=== PATIENT | female | born 1950 | race Caucasian/White ===

== ENCOUNTER 2016-06-16 13:17 | Outpatient (CLI) | payer MEDICARE | END 2016-06-16 13:18 | disposition home or self-care (01) | DX: M25.511 Pain in right shoulder (principal) ==

== ENCOUNTER 2018-12-09 09:19 | Outpatient (CLI) | payer MEDICARE ==
[2018-12-09 09:56] LABS: BASOPHILS % (AUTO) 0.8 %; EOSINOPHILS # (AUTO) 0.1 10^3/uL (0.0-0.7); EOSINOPHILS % (AUTO) 3.5 %; HGB - HEMOGLOBIN 13.7 g/dL (12.0-16.0); LYMPHOCYTES # (AUTO) 0.9 10^3/uL (1.5-3.5); LYMPHOCYTES % (AUTO) 21.7 %; MEAN CORPUSCULAR HEMOGLOBIN 29.9 pg (27.0-31.0); MEAN CORPUSCULAR HGB CONC 32.3 g/dL (32.0-36.0); MEAN CORPUSCULAR VOLUME 92.6 fL (81.0-99.0); MEAN PLATELET VOLUME 10.8 fL (7.9-10.8); MONOCYTES # (AUTO) 0.3 10^3/uL (0.0-1.0); MONOCYTES % (AUTO) 7.8 %; NEUTROPHILS # (AUTO) 2.6 10^3/uL (1.5-6.6); NEUTROPHILS % (AUTO) 66.2 %; PLT - PLATELET COUNT 200 10^3/uL (130-450); RED BLOOD COUNT 4.58 10^6/uL (4.20-5.40); RED CELL DISTRIBUTION WIDTH 14.2 % (12.0-15.0)
[2018-12-09 10:29] LABS: ALBUMIN/GLOBULIN RATIO 1.3 (1.0-2.2); ALKALINE PHOSPHATASE 77 IU/L (42-121); ALT ALANINE AMINOTRANSFERASE 15 IU/L (10-60); AST ASPARTATE AMINOTRANSFERASE 18 IU/L (10-42); BILIRUBIN,TOTAL 0.9 mg/dL (0.2-1.0); BUN - BLOOD UREA NITROGEN 18 mg/dL (6-20); CALCIUM 9.2 mg/dL (8.5-10.3); CARBON DIOXIDE - CO2 27 mmol/L (21-32); CHLORIDE 106 mmol/L (101-111); CHOL/HDL RATIO 5.3 (<4.4); CHOLESTEROL 232 mg/dL; CREATININE 0.8 mg/dL (0.4-1.0); GFR - MDRD 71 (>89); GLUCOSE 92 mg/dL (70-100); HDL CHOLESTEROL 44 mg/dL; LDL CHOLESTEROL,CALCULATED 168 mg/dL; LDL/HDL RATIO 3.8 (<4.4); SODIUM 141 mmol/L (135-145); TOTAL PROTEIN 7.1 g/dL (6.7-8.2); VLDL CHOLESTEROL 20 mg/dL
== END 2018-12-09 09:20 | disposition home or self-care (01) ==
LOC: LAB 09:19
PROVIDERS: ATTEND Registered Nurse
DX: E78.5 Hyperlipidemia, unspecified (principal); Z13.228 Encounter for screening for other metabolic disorders; M85.50 Aneurysmal bone cyst, unspecified site; E55.9 Vitamin D deficiency, unspecified; Z13.220 Encounter for screening for lipoid disorders; M85.80 Other specified disorders of bone density and structure, unspecified site
CPT/HCPCS: 36415; 80053; 80061; 83036; 83721; 84443; 85025

== ENCOUNTER 2019-01-06 15:15 | Outpatient (CLI) | payer MEDICARE ==
--- NOTE | 2019-01-07 11:08 | Mammography Report ---
Reason: ROUTINE MAMMO Procedure Date: 01/06/2019 Accession Number: [id number] / [id number] Procedure: HORACIO - Screening Mammo w/Anmol CPT Code: Final Report FULL RESULT: EXAM: Screening Mammo w/Anmol DATE: 01/06/2019 4:10 PM CLINICAL HISTORY: Screening encounter. History of nulliparity. Family history of breast cancer in the mother at the age of 75. TECHNIQUE: (B) - Bilateral CC and MLO views were obtained. Right laterally exaggerated CC view is obtained. COMPARISON: 09/10/2015 through 08/28/2010. PARENCHYMAL PATTERN: (A) - The breast(s) demonstrate(s) scattered fibroglandular densities. FINDINGS: There are no suspicious masses, calcifications, or areas of distortion. IMPRESSION: Negative examination. BI-RADS category 1. RECOMMENDATION: (ANNUAL) - Recommend routine annual screening mammography. BI-RADS CATEGORY: (1) - Negative. STANDARD QUALIFYING STATEMENTS: 1. This examination was not reviewed with the aid of Computer-Aided Detection (CAD). 2. A negative or benign imaging report should not preclude biopsy if clinically suspicious findings are present. 3. Dense breasts may obscure an underlying neoplasm. 4. This examination was reviewed with the aid of 3D breast imaging (tomosynthesis).
== END 2019-01-06 15:16 | disposition home or self-care (01) ==
LOC: DI 15:15
PROVIDERS: ATTEND Registered Nurse
DX: Z12.31 Encounter for screening mammogram for malignant neoplasm of breast (principal); Z80.3 Family history of malignant neoplasm of breast
CPT/HCPCS: 77063; 77067

== ENCOUNTER 2019-12-09 10:10 | Outpatient (CLI) | payer MEDICARE | END 2019-12-09 23:59 | disposition home or self-care (01) | LOC: COV 10:10 | PROVIDERS: ATTEND Family Medicine | DX: Z20.828 Contact with and (suspected) exposure to other viral communicable diseases (principal) ==

== ENCOUNTER 2020-05-22 15:10 | Outpatient (CLI) | payer MEDICARE ==
--- NOTE | 2020-05-22 16:26 | XRAY Report ---
PROCEDURE: Chest 2 View X-Ray INDICATIONS: HEMPOTYSIS TECHNIQUE: 2 view(s) of the chest. COMPARISON: None. FINDINGS: Surgical changes and devices: None. Lungs and pleura: No pleural effusions or pneumothorax. Scattered subsegmental scarring/atelectasis . No acute consolidation. Mediastinum: Mediastinal contours are normal. Heart size is normal. Bones and chest wall: No suspicious bony abnormalities. Soft tissues appear unremarkable. IMPRESSION: Scattered subsegmental scarring/atelectasis. No acute consolidation. Reviewed by: Delano Stephens MD on 05/22/2020 4:24 PM PDT Approved by: Delano Stephens MD on 05/22/2020 4:24 PM PDT Station ID: [id number]
== END 2020-05-22 15:11 | disposition home or self-care (01) ==
LOC: DI.S 15:10
PROVIDERS: ATTEND Physician Assistant
DX: R04.2 Hemoptysis (principal); J98.11 Atelectasis

== ENCOUNTER 2020-05-22 16:38 | Emergency (ER) | payer MEDICARE ==
[2020-05-22 17:12] LABS: BASOPHILS % (AUTO) 0.4 %; EOSINOPHILS # (AUTO) 0.1 10^3/uL (0.0-0.7); EOSINOPHILS % (AUTO) 2.4 %; HCT - HEMATOCRIT 44.6 % (37.0-47.0); HGB - HEMOGLOBIN 14.4 g/dL (12.0-16.0); LYMPHOCYTES % (AUTO) 21.4 %; MEAN CORPUSCULAR HEMOGLOBIN 29.9 pg (27.0-31.0); MEAN CORPUSCULAR HGB CONC 32.3 g/dL (32.0-36.0); MEAN CORPUSCULAR VOLUME 92.5 fL (81.0-99.0); MEAN PLATELET VOLUME 11.1 fL (7.9-10.8); MONOCYTES # (AUTO) 0.3 10^3/uL (0.0-1.0); MONOCYTES % (AUTO) 6.8 %; NEUTROPHILS # (AUTO) 3.1 10^3/uL (1.5-6.6); NEUTROPHILS % (AUTO) 68.8 %; PLT - PLATELET COUNT 228 10^3/uL (130-450); RED BLOOD COUNT 4.82 10^6/uL (4.20-5.40); RED CELL DISTRIBUTION WIDTH 14.2 % (12.0-15.0); WHITE BLOOD COUNT 4.5 x10^3/uL (4.8-10.8)
[2020-05-22] MEDS ORDERED: IOVERSOL 320 100 ML VIAL IVP ONE ×2 (17:12→19:16)
--- NOTE | 2020-05-22 17:23 | ED Physician Documentation ---
History of Present Illness - Stated complaint Stated Complaint: COUGHING BLOOD - Chief complaint Chief Complaint: Heent - History obtained from History obtained from: Patient - Additonal information Additional information: 69-year-old woman, previously healthy presents after being sent in by LARISA Wilkinson at the walk-in clinic. Around 4 AM she had 1 episode of bright red blood via cough and then another episode This later in the day prompting her to go to a walk-in clinic. She denies feeling ill, having shortness of breath or sore throat or coughing more than usual other than these 2 episodes. She does endorse some right calf pain and recently drove from [place] 2 weeks ago. No prior history of blood clots. No chest pain, no shortness of breath. History denies sick contacts. She did get her first dose of the [employer] vaccine. Review of Systems Ten Systems: 10 systems reviewed and negative Constitutional: denies: Fever, Chills Respiratory: reports: Cough, Hemoptysis. denies: Dyspnea, Wheezing GI: denies: Abdominal Pain, Nausea PD PAST MEDICAL HISTORY - Present Medications Home Medications: Ambulatory Orders Medication Instructions Recorded Confirmed No Known Home Medications 05/22/20 05/22/20 - Allergies Allergies/Adverse Reactions: Allergies Allergy/AdvReac Type Severity Reaction Status Date / Time codeine Allergy Unknown Verified 05/22/20 16:47 PD ED PE NORMAL - Vitals Vital signs reviewed: Yes - General General: Alert and oriented X 3, No acute distress, Well developed/nourished - HEENT HEENT: Atraumatic, PERRL, EOMI, Moist mucous membranes, Pharynx benign - Neck Neck: Supple, no meningeal sign - Cardiac Cardiac: RRR - Respiratory Respiratory: No respiratory distress, Clear bilaterally - Abdomen Abdomen: Non tender, Non distended - Derm Derm: Normal color, Warm and dry - Extremities Extremities: Other (Right calf discomfort with palpation. Negative Homans' sign. No calf swelling on either side.) - Neuro Neuro: Alert and oriented X 3 - Psych Psych: Normal mood, Normal affect Results - Vitals Vitals: Vital Signs - 24 hr 05/22/20 05/22/20 16:47 17:27 Temperature 36.5 C 36.5 C Heart Rate 63 63 Respiratory 18 18 Rate Blood Pressure 150/80 H 150/80 H O2 Saturation 97 97 Oxygen O2 Source Room air - EKG (time done) 1713 Rate: Rate (enter#) (50) Rhythm: Sinus bradycardia Pollock: Normal Intervals: Normal CO QRS: Normal Ischemia: ST elevation c/w repol - Labs Labs: Laboratory Tests 05/22/20 05/22/20 17:05 17:05 WBC 4.5 L RBC 4.82 Hgb 14.4 Hct 44.6 MCV 92.5 MCH 29.9 MCHC 32.3 RDW 14.2 Plt Count 228 MPV 11.1 H Neut # (Auto) 3.1 Lymph # (Auto) 1.0 L Curry # (Auto) 0.3 Eos # (Auto) 0.1 Baso # (Auto) 0.0 Absolute Nucleated RBC 0.00 Nucleated RBC % 0.0 Sodium 140 Potassium 4.5 Chloride 106 Carbon Dioxide 27 Anion Gap 7.0 BUN 24 H Creatinine 0.9 Estimated GFR (MDRD) 62 L Glucose 93 Calcium 10.1 Total Bilirubin 0.2 AST 23 ALT 20 Alkaline Phosphatase 90 Total Protein 7.4 Albumin 4.3 Globulin 3.1 Albumin/Globulin Ratio 1.4 Lipase 22 PD MEDICAL DECISION MAKING - ED course ED course: 69-year-old woman presents from walk-in clinic for rule out of pulmonary embolism. Her CT angio shows no obvious cause of her hemoptysis. She does not appear to have acute bronchitis, TB risk factors, and is otherwise asymptomatic. Discussed need for follow up MRI for incidental LUQ fatty mass. We will discharge her with strict return precautions and watchful waiting. She should follow-up with her primary doctor this week. Pulmonology referral given. Departure - Departure Disposition: 01 Home, Self Care Clinical Impression: Hemoptysis, Right calf pain Condition: Good Instructions: ED Hemoptysis Comments: You were seen in the emergency department for blood in your cough. Your CT did not show any obvious cause for this. If you continue to have blood in your cough then you may need to see a financial engineer (a lung specialist). Your CT did show a "lipoma" in your left upper abdomen, which is a non-cancerous fatty mass. You should have a follow up MRI of the abdomen with and without IV contrast, according to our radiologist (the doctor who reads your CT). Please follow-up with your primary doctor this week. Return to the emergency department if you develop any new or worsening symptoms or have other concerns. Huyen Valdivia MD [email or web address] Huyen Valdivia MD practices Pulmonary Medicine at [facility]. CT report: EXAM: [id number] CT/CHTANG ([id number]) PROCEDURE: ANGIO CHEST W/WO INDICATIONS: hemoptysis, unequal leg swelling, recent travel CONTRAST: IV CONTRAST: Optiray 320 ml: 80 PO CONTRAST: *NO PO CONTRAST TECHNIQUE: After the administration of intravenous contrast, 2 mm thick sections acquired from the pulmonary apices to the posterior costophrenic angles. 3-dimensional maximum intensity projection (MIP) coron al and sagittal reformats were then acquired through the thorax. For radiation dose reduction, the following was used: automated exposure control, adjustment of mA and/or kV according to patient size. COMPARISON: 2 view chest x-ray 05/22/2020. FINDINGS: Image quality: Excellent. Pulmonary arteries: Pulmonary arteries are normal in size, and demonstrate no intraluminal filling defects to suggest central pulmonary embolism. Lungs and pleura: Lungs are clear acute opacities. Focal areas of fibrosis with associated bronchiectasis noted in the posterior-lateral right upper lobe and the lingula of the left upper lobe. No pleural effusions or pneumothorax. Central and peripheral airways are patent. Mediastinum: Heart size is normal, without pericardial effusion. No mediastinal or hilar adenopathy. Thoracic aorta is normal in caliber and enhancement. Esophagus is normal in caliber, without hiatal hernia. Bones and chest wall: No suspicious bony lesions. Ribs and thoracic spine appear intact throughout. The thyroid is normal. No axillary or supraclavicular adenopathy. Abdomen: Partially visualized large lipomatous lesion noted in the left upper quadrant abdomen producing mild mass effect on loops of bowel, the left kidney and the tail of pancreas. Thin septa noted lipomatous lesion. Visualized upper abdominal solid organs appear normal in the early arterial phase of enhancement. IMPRESSION: 1. No pulmonary embolus. 2. No acute lung opacities or pleural effusions. 3. Partially visualized large lipomatous lesion in the left upper quadrant of th e abdomen increasing local mass effect. Recommend nonemergent MRI of the abdomen with and without contrast for definitive characterization when clinically feasible.
[2020-05-22 17:24] LABS: ALBUMIN 4.3 g/dL (3.2-5.5); ALBUMIN/GLOBULIN RATIO 1.4 (1.0-2.2); BILIRUBIN,TOTAL 0.2 mg/dL (0.2-1.0); CALCIUM 10.1 mg/dL (8.5-10.3); CREATININE 0.9 mg/dL (0.4-1.0); POTASSIUM 4.5 mmol/L (3.5-5.0); TOTAL PROTEIN 7.4 g/dL (6.7-8.2)
[2020-05-22] MEDS ORDERED: SODIUM CHLORIDE 0.9% 1,000 ML IV STA (17:47)
--- NOTE | 2020-05-22 18:36 | CT Report ---
PROCEDURE: ANGIO CHEST W/WO INDICATIONS: hemoptysis, unequal leg swelling, recent travel CONTRAST: IV CONTRAST: Optiray 320 ml: 80 PO CONTRAST: *NO PO CONTRAST TECHNIQUE: After the administration of intravenous contrast, 2 mm thick sections acquired from the pulmonary api josé miguel to the posterior costophrenic angles. 3-dimensional maximum intensity projection (MIP) coronal a nd sagittal reformats were then acquired through the thorax. For radiation dose reduction, the follow ing was used: automated exposure control, adjustment of mA and/or kV according to patient size. COMPARISON: 2 view chest x-ray 05/22/2020. FINDINGS: Image quality: Excellent. Pulmonary arteries: Pulmonary arteries are normal in size, and demonstrate no intraluminal filling d efects to suggest central pulmonary embolism. Lungs and pleura: Lungs are clear acute opacities. Focal areas of fibrosis with associated bronchiect asis noted in the posterior-lateral right upper lobe and the lingula of the left upper lobe. No pleur al effusions or pneumothorax. Central and peripheral airways are patent. Mediastinum: Heart size is normal, without pericardial effusion. No mediastinal or hilar adenopathy . Thoracic aorta is normal in caliber and enhancement. Esophagus is normal in caliber, without hiat al hernia. Bones and chest wall: No suspicious bony lesions. Ribs and thoracic spine appear intact throughout. The thyroid is normal. No axillary or supraclavicular adenopathy. Abdomen: Partially visualized large lipomatous lesion noted in the left upper quadrant abdomen produc ing mild mass effect on loops of bowel, the left kidney and the tail of pancreas. Thin septa noted li pomatous lesion. Visualized upper abdominal solid organs appear normal in the early arterial phase of enhancement. IMPRESSION: 1. No pulmonary embolus. 2. No acute lung opacities or pleural effusions. 3. Partially visualized large lipomatous lesion in the left upper quadrant of the abdomen increasing local mass effect. Recommend nonemergent MRI of the abdomen with and without contrast for definitive characterization when clinically feasible. Reviewed by: Johanny Mendiola MD, PhD on 05/22/2020 6:35 PM PDT Approved by: Johanny Mendiola MD, PhD on 05/22/2020 6:35 PM PDT Station ID: [id number]
[2020-05-22 19:44] VITALS: BP 153/82
[2020-05-22 19:52] LABS: INR 1.1 (0.8-1.2); PT - PROTHROMBIN TIME 12.5 secs (9.9-12.6)
[2020-05-22 19:59] LABS: PARTIAL THROMBOPLASTIN TIME 30.6 secs (24.9-33.3)
== END 2020-05-22 19:58 | disposition home or self-care (01) ==
LOC: ED 16:38
DX: R04.2 Hemoptysis (principal); M79.661 Pain in right lower leg; D17.5 Benign lipomatous neoplasm of intra-abdominal organs; J98.11 Atelectasis
CPT/HCPCS: 36415; 71046; 71275; 80053; 83690; 85025; 85610; 85730; 93005; Q9967; 96360; 99284

== ENCOUNTER 2020-07-05 11:14 | Outpatient (CLI) | payer MEDICARE ==
[2020-07-05 14:53] LABS: HCG,QUALITATIVE BLOOD NEGATIVE
== END 2020-07-05 11:15 | disposition home or self-care (01) ==
LOC: LAB.S 11:14
PROVIDERS: ATTEND Registered Nurse
DX: R19.02 Left upper quadrant abdominal swelling, mass and lump (principal); R04.2 Hemoptysis; R10.13 Epigastric pain
CPT/HCPCS: 36415; 82105; 83615; 84703

== ENCOUNTER 2021-03-19 12:47 | Outpatient (CLI) | payer MEDICARE ==
--- NOTE | 2021-03-20 11:41 | Mammography Report ---
BILATERAL DIGITAL SCREENING MAMMOGRAM 3D/2D WITH EXAGGERATED CC: 03/19/2021 CLINICAL: Routine screening. Family history of breast cancer. Comparison is made to exams dated: 01/06/2019 mammogram, 09/10/2015 mammogram, and 06/08/2013 mammogram - [facility]. There are scattered fibroglandular elements in both breasts. No significant masses, calcifications, or other findings are seen in either breast. There has been no significant interval change. IMPRESSION: NEGATIVE There is no mammographic evidence of malignancy. A 1 year screening mammogram is recommended. This exam was interpreted at Station ID: [id number]. NOTE: For mammograms, a report in lay terms will be sent to the patient. Approximately 15% of breast malignancies will not be visualized mammographically. In the management of a palpable breast mass, a negative mammogram must not discourage biopsy of a clinically suspicious lesion. Electronically Signed By: Reginaldo Ramirez M.D. aty/penrad:03/19/2021 19:04:52 ACR BI-RADS Category 1: Negative 3341F PARENCHYMAL PATTERN: (A) - The breast(s) demonstrate(s) scattered fibroglandular densities. BI-RADS CATEGORY: (1) - 1 RECOMMENDATION: (ANNUAL) - Recommend routine annual screening mammography. [id number] 1 year screening LATERALITY: (B)
== END 2021-03-19 12:48 | disposition home or self-care (01) ==
LOC: DI.S 12:47
PROVIDERS: ATTEND Registered Nurse
DX: Z12.31 Encounter for screening mammogram for malignant neoplasm of breast (principal); Z80.3 Family history of malignant neoplasm of breast

== ENCOUNTER 2022-05-19 13:59 | Outpatient (CLI) | payer MEDICARE ==
--- NOTE | 2022-05-20 12:45 | Mammography Report ---
BILATERAL DIGITAL SCREENING MAMMOGRAM 3D/2D WITH EXAGGERATED CC: 05/19/2022 CLINICAL: Routine screening. Family history of breast cancer. Comparison is made to exams dated: 03/19/2021 mammogram, 01/06/2019 mammogram, and 09/10/2015 mammogram - [facility]. There are scattered areas of fibroglandular density in both breasts (category b / 25%-50% glandular t issue). No significant masses, calcifications, or other findings are seen in either breast. There has been no significant interval change. IMPRESSION: NEGATIVE There is no mammographic evidence of malignancy. A 1 year screening mammogram is recommended. Based on the Tyrer Cuzick model (a risk assessment model) the patients lifetime risk is 10.5% and he r 10 year risk is 7.3%. According to the ACR, ACS, and NCCN guidelines, an annual breast MRI exam sonya ng with mammogram is recommended if the patients lifetime risk is 20% or greater. This exam was interpreted at Station ID: [id number]. NOTE: For mammograms, a report in lay terms will be sent to the patient. Approximately 15% of breast malignancies will not be visualized mammographically. In the management of a palpable breast mass, a negative mammogram must not discourage biopsy of a clinically suspicious lesion. Electronically Signed By: Vinay farr/prateek:05/19/2022 15:37:19 letter sent: No_Letter ACR BI-RADS Category 1: Negative 3341F PARENCHYMAL PATTERN: (A) - The breast(s) demonstrate(s) scattered fibroglandular densities. BI-RADS CATEGORY: (1) - 1 Mammogram [id number] 1 year screening LATERALITY: (B)
== END 2022-05-19 14:00 | disposition home or self-care (01) ==
LOC: DI.S 13:59
PROVIDERS: ATTEND Registered Nurse
DX: Z12.31 Encounter for screening mammogram for malignant neoplasm of breast (principal); Z80.3 Family history of malignant neoplasm of breast

== ENCOUNTER 2022-10-03 05:54 | Emergency (ER) | payer MEDICARE ==
--- NOTE | 2022-10-03 06:12 | ED Physician Documentation ---
PD HPI CHEST PAIN - Stated complaint Stated Complaint: R CHEST PX - History obtained from History obtained from: Patient - Additional information Additional information: HPI from patient. Patient c/o 1-2 days of burning right-sided chest pain, anterolateral aspect of mid/lower chest. Pain is exacerbated with inspiration (pleuritic) with lesser component of exacerbation with movement. She says she has had similar symptoms in the past diagnosed as pneumonia. Denies dyspnea, denies cough. Review of Systems Constitutional: reports: Reviewed and negative Cardiac: reports: Chest pain / pressure. denies: Palpitations, Calf pain Respiratory: denies: Dyspnea, Cough, Hemoptysis, Wheezing GI: reports: Reviewed and negative Musculoskeletal: reports: Extremity swelling (swelling localized to lateral a spect of left lower leg at site of recent melanoma removal) PD PAST MEDICAL HISTORY - Past Medical History Cardiovascular: None Neuro: None Musculoskeletal: None - Past Surgical History Past Surgical History: No - Present Medications Home Medications: Ambulatory Orders Medication Instructions Recorded Confirmed Azithromycin [Zithromax] 250 mg PO DAILY #4 tablet 10/03/22 Fluticasone/Salmeterol [Advair 1 each IH BID 10/03/22 10/03/22 100-50 Diskus] - Allergies Allergies/Adverse Reactions: Allergies Allergy/AdvReac Type Severity Reaction Status Date / Time codeine Allergy Unknown Verified 10/03/22 06:16 - Social History Does the pt smoke?: No Smoking Status: Never smoker Does the pt drink ETOH?: No Does the pt have substance abuse?: No - Immunizations Immunizations are current?: Yes PD ED PE NORMAL - Vitals Vital signs reviewed: Yes - General General: Alert and oriented X 3, No acute distress, Well developed/nourished - Cardiac Cardiac: RRR, No murmur - Respiratory Respiratory: No respiratory distress, Clear bilaterally - Abdomen Abdomen: Soft, Non tender - Derm Derm: Normal color, Warm and dry PD ED PE EXPANDED - Extremities IRAIDA LE visual: 1 - swelling (localized/focal swelling surrounding melanoma removal (surgical) site; no circumferential swelling nor swelling distal to the surgical site) Results - Vitals Vitals: Oxygen O2 Source Room air - EKG (time done) No standard instances EKG releavant findings:: EKG personally interpreted by author of this note. Relevant findings are: Rhythm: NSR [place]: Normal Intervals: Normal CO QRS: Normal Ischemia: Normal ST segments Other comments: Other comments (PACs) - Labs Labs: Laboratory Tests 10/03/22 10/03/22 10/03/22 06:10 06:10 06:18 WBC 8.6 RBC 4.44 Hgb 12.8 Hct 39.8 MCV 89.6 MCH 28.8 MCHC 32.2 RDW 14.8 Plt Count 188 MPV 10.9 H Neut # (Auto) 6.7 H Lymph # (Auto) 1.1 L Patrick # (Auto) 0.7 Eos # (Auto) 0.1 Baso # (Auto) 0.0 Absolute Nucleated RBC 0.00 Nucleated RBC % 0.0 D-Dimer 223.8 Sodium 135 Potassium 4.1 Chloride 105 Carbon Dioxide 24 Anion Gap 6.0 BUN 22 H Creatinine 1.3 Estimated GFR (MDRD) 40 L Glucose 97 Calcium 9.8 Total Bilirubin 1.0 AST 17 ALT 14 Alkaline Phosphatase 85 Troponin I High Sens 7.4 Total Protein 7.1 Albumin 4.0 Globulin 3.1 Albumin/Globulin Ratio 1.3 Lipase 14 - Rads (name of study) chest xray Relevant Findings:: Prelim report reviewed, See rad report PD Medical Decision Making - ED course Complexity details: reviewed results, re-evaluated patient, considered differential, d/w patient ED course: Tests ordered and results reviewed by me: CBC, ER abdominal panel, d-dimer, EKG, CXR. Normal CBC and ER abdominal panel (bun 22 noted with creatinine 1.3). CXR interpreted by radiologist as lingular infiltrate; also right hilar density likely vasculature but f/u recommended for restudy (see radiologist's interpretation). Normal hs-cTn and no acute findings on EKG (PACs noted). Negative d-dimer (223). Will treat for pneumonia given the xray findings and h/o similar symptoms associated with pneumonia; she is given 500mg PO zithromax with rx for 250mg zithromax QD x 4 days Departure - Departure Disposition: 01 Home, Self Care Clinical Impression: Atypical chest pain Condition: Good Instructions: ED Chest Pain Atypical Unkn Cause, ED Pneumonia Adult Prescriptions: Azithromycin [Zithromax] 250 mg PO DAILY #4 tablet Comments: There were no concerning or diagnostic findings on the blood tests nor on the EKG. The chest x-ray appears to have a small, focal area of pneumonia, for which you are given the first dose of an antibiotic (azithromycin) in the emergency department and a prescription for the rest of the course of this antibiotic [facility] [place]. The radiologist also notes a right lung density of unclear significance. Follow up with your primary care provider for reevaluation of the symptoms and infection, but also mention to them that there was a questionable right-sided density. They might recommend further testing regarding this finding in the right lung. Forms: PCP List Discharge Date/Time: 10/03/22 09:24
[2022-10-03 06:16] LABS: BASOPHILS % (AUTO) 0.3 %; EOSINOPHILS # (AUTO) 0.1 10^3/uL (0.0-0.7); EOSINOPHILS % (AUTO) 0.7 %; HCT - HEMATOCRIT 39.8 % (37.0-47.0); HGB - HEMOGLOBIN 12.8 g/dL (12.0-16.0); LYMPHOCYTES # (AUTO) 1.1 10^3/uL (1.5-3.5); LYMPHOCYTES % (AUTO) 13.1 %; MEAN CORPUSCULAR HEMOGLOBIN 28.8 pg (27.0-31.0); MEAN CORPUSCULAR HGB CONC 32.2 g/dL (32.0-36.0); MEAN CORPUSCULAR VOLUME 89.6 fL (81.0-99.0); MEAN PLATELET VOLUME 10.9 fL (7.9-10.8); MONOCYTES # (AUTO) 0.7 10^3/uL (0.0-1.0); MONOCYTES % (AUTO) 8.2 %; NEUTROPHILS # (AUTO) 6.7 10^3/uL (1.5-6.6); NEUTROPHILS % (AUTO) 77.5 %; PLT - PLATELET COUNT 188 10^3/uL (130-450); RED BLOOD COUNT 4.44 10^6/uL (4.20-5.40); RED CELL DISTRIBUTION WIDTH 14.8 % (12.0-15.0); WHITE BLOOD COUNT 8.6 x10^3/uL (4.8-10.8)
[2022-10-03 06:34] LABS: ALBUMIN/GLOBULIN RATIO 1.3 (1.0-2.2); CALCIUM 9.8 mg/dL (8.5-10.3); CREATININE 1.3 mg/dL (0.6-1.3); POTASSIUM 4.1 mmol/L (3.5-4.5); TOTAL PROTEIN 7.1 g/dL (6.4-8.9)
[2022-10-03 06:40] LABS: TROPONIN I HIGH SENSITIVITY 7.4 ng/L (2.3-14.8)
--- NOTE | 2022-10-03 08:25 | XRAY Report ---
PROCEDURE: Chest 2 View X-Ray INDICATIONS: chest pain TECHNIQUE: 2 views of the chest were acquired. COMPARISON: None. FINDINGS: Surgical changes and devices: None. Lungs and pleura: There is underlying patchy scarring present. There is very subtle probable superim posed interstitial pulmonary edema. Mediastinum: Mediastinal contours appear normal. Heart size is normal. Bones and chest wall: No suspicious bony lesions. Overlying soft tissues appear unremarkable. IMPRESSION: Findings suggest very subtle changes of congestive heart failure superimposed on chronic scarring. Reviewed by: Yousif Cole MD on 10/03/2022 8:24 AM PDT Approved by: Yousif Cole MD on 10/03/2022 8:24 AM PDT Station ID: [id number]
[2022-10-03] MEDS ORDERED: AZITHROMYCIN 250 MG TABLET PO STA (08:51)
[2022-10-03] MEDS ORDERED: AZITHROMYCIN 250 MG TABLET PO SCH (09:00)
[2022-10-03 09:31] VITALS: BP 127/67
== END 2022-10-03 09:24 | disposition home or self-care (01) ==
LOC: ED 05:54
DX: J18.9 Pneumonia, unspecified organism (principal); R91.8 Other nonspecific abnormal finding of lung field
CPT/HCPCS: 36415; 71046; 80053; 83690; 84484; 85025; 85379; 93005; 99284; A9270

== ENCOUNTER 2023-03-10 10:49 | Outpatient (CLI) | payer MEDICARE ==
--- NOTE | 2023-03-10 14:42 | DEXA Report ---
PROCEDURE: Dexa Spine and/or Hip INDICATIONS: POST MENOPAUSAL TECHNIQUE: Dual energy x-ray absorptiometry (DXA) was performed on a ClassLink System. Regions measur ed are the AP Spine, femoral neck, and if needed forearm. COMPARISON: None FINDINGS: Lumbar Spine: Bone Mineral Density 1.005 g/cm/cm,T score -1.5. Left Femoral Neck: Bone Mineral Density 0.771 g/cm/cm, T score -1.0. Left Hip: Bone Mineral Density 0.842 g/cm/cm,T score -1.3. (T score greater or equal to -1.0: NORMAL) (T score from -1.1 to -2.4: OSTEOPENIA) (T score less than or equal to -2.5 to: OSTEOPOROSIS) Impression: By WHO criteria, this patient has mild osteopenia lumbar spine and left hip. Patients with diagnosis of osteoporosis or osteopenia should have regular bone mineral density assess ment. For those eligible for Medicare, routine testing is allowed once every 2 years. Testing frequ ency can be increased for patients who have rapidly progressing disease or for those who are receivin g medical therapy to restore bone mass. Reviewed by: Reena Quijano MD on 03/10/2023 2:40 PM PST Approved by: Reena Quijano MD on 03/10/2023 2:40 PM PST Station ID: [id number]
== END 2023-03-10 10:50 | disposition home or self-care (01) ==
LOC: DI 10:49
PROVIDERS: ATTEND Registered Nurse
DX: Z78.0 Asymptomatic menopausal state (principal); M85.89 Other specified disorders of bone density and structure, multiple sites

== ENCOUNTER 2023-06-02 09:46 | Outpatient (CLI) | payer MEDICARE ==
--- NOTE | 2023-06-03 10:12 | Mammography Report ---
BILATERAL DIGITAL SCREENING MAMMOGRAM 3D/2D: 06/02/2023 CLINICAL: Routine screening. Family history of breast cancer. Comparison is made to exams dated: 05/19/2022 mammogram, 01/06/2019 mammogram, and 03/19/2021 mammogram - [facility]. There are scattered areas of fibroglandular density in both breasts (category b / 25%-50% glandular t issue). No significant masses, calcifications, or other findings are seen in either breast. There has been no significant interval change. IMPRESSION: NEGATIVE There is no mammographic evidence of malignancy. A 1 year screening mammogram is recommended. Based on the Tyrer Cuzick model (a risk assessment model) the patient's lifetime risk is 9.9% and her 10 year risk is 7.5%. According to the ACR, ACS, and NCCN guidelines, an annual breast MRI exam louise g with mammogram is recommended if the patient's lifetime risk is 20% or greater. This exam was interpreted at Station ID: [id number]. NOTE: For mammograms, a report in lay terms will be sent to the patient. Approximately 15% of breast malignancies will not be visualized mammographically. In the management of a palpable breast mass, a negative mammogram must not discourage biopsy of a clinically suspicious lesion. Electronically Signed By: Denis esposito/prateek:06/02/2023 14:34:57 letter sent: No_Letter ACR BI-RADS Category 1: Negative 3341F PARENCHYMAL PATTERN: (A) - The breast(s) demonstrate(s) scattered fibroglandular densities. BI-RADS CATEGORY: (1) - 1 RECOMMENDATION: (ANNUAL) - Recommend routine annual screening mammography. [id number] 1 year screening LATERALITY: (B)
== END 2023-06-02 09:47 | disposition home or self-care (01) ==
LOC: DI.S 09:46
PROVIDERS: ATTEND Registered Nurse
DX: Z12.31 Encounter for screening mammogram for malignant neoplasm of breast (principal); R92.323 Mammographic fibroglandular density, bilateral breasts; Z80.3 Family history of malignant neoplasm of breast

== ENCOUNTER 2023-07-29 11:31 | Outpatient (CLI) | payer MEDICARE ==
[2023-07-29 15:12] LABS: CREATININE,URINE 73.4 mg/dL; PROTEIN/CREATININE RATIO,URINE 0.1 (<=0.2)
[2023-07-29 15:17] LABS: ALBUMIN 4.1 g/dL (3.2-5.5)
[2023-07-29 15:22] LABS: BILIRUBIN,URINE NEGATIVE (NEGATIVE); GLUCOSE, URINE (UA) NEGATIVE (NEGATIVE); KETONES,URINE (UA) NEGATIVE (NEGATIVE); LEUKOCYTE ESTERASE, URINE NEGATIVE (NEGATIVE); NITRITE,URINE NEGATIVE (NEGATIVE); OCCULT BLOOD,URINE NEGATIVE (NEGATIVE); PROTEIN,URINE NEGATIVE (NEGATIVE); UROBILINOGEN,URINE 0.2 (NORMAL) E.U./dL (NORMAL)
[2023-07-29 15:23] LABS: CALCIUM 9.9 mg/dL (8.5-10.3); CREATININE 1.2 mg/dL (0.6-1.3); PHOSPHORUS 2.9 mg/dL (2.5-5.0); POTASSIUM 4.4 mmol/L (3.5-4.5)
[2023-07-29 15:27] LABS: CLARITY,URINE CLEAR (CLEAR)
[2023-07-29 16:17] LABS: BACTERIA,URINE None Seen /HPF (None Seen); RBC,URINE 0-5 /HPF (0-5); SQUAMOUS EPITHELIAL CELL,UR NONE SEEN (<= Few); WBC,URINE 0-3 /HPF (0-5)
== END 2023-07-29 11:32 | disposition home or self-care (01) ==
LOC: LAB.S 11:31
PROVIDERS: ATTEND Internal Medicine Nephrology
DX: N18.32 Chronic kidney disease, stage 3b (principal)
CPT/HCPCS: 36415; 80069; 81001; 82570; 84156; 87086

== ENCOUNTER 2025-01-06 14:18 | Inpatient (IN) ==
--- OUTSIDE RECORDS SUMMARY | 2025-01-06 14:35 | EXTERNAL MEDICAL SUMMARY RPT | Continuity of Care Document ---
Author Organization [facility] Address [address] [place] [address] Phone Problems date description facility 2025-01-01 23:28 Chronic kidney disease, stage 3 b [facility] 2025-01-04 09:21 Polyneuropathy, unspecified [facility] 2025-01-04 09:21 Other [facility] (current) drug therapy [facility] 2025-01-04 09:30 Polyneuropathy, unspecified [facility] 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
[2025-01-06 15:46] LABS: HCT - HEMATOCRIT 38.3 % (37.0-47.0); HGB - HEMOGLOBIN 11.9 g/dL (12.0-16.0); MEAN PLATELET VOLUME 10.3 fL (7.9-10.8); NRBC ABSOLUTE COUNT (AUTO) 0.00 x10^3/uL; NUCLEATED RED BLOOD CELLS AUTO 0.0 /100WBC; PLT - PLATELET COUNT 277 10^3/uL (130-450); RED CELL DISTRIBUTION WIDTH 14.9 % (12.0-15.0)
[2025-01-06 16:02] LABS: ALT ALANINE AMINOTRANSFERASE 14.0 IU/L (10-60); AST ASPARTATE AMINOTRANSFERASE 16.0 IU/L (10-42); BUN - BLOOD UREA NITROGEN 22.0 mg/dL (6-20); CARBON DIOXIDE - CO2 22.0 mmol/L (21-32); CREATININE 1.1 mg/dL (0.6-1.3); GFR - MDRD 49.0 (>89)
[2025-01-06] MEDS: ONDANSETRON 4 MG/2 ML VIAL IVP STA (17:16)
[2025-01-06] MEDS: KETOROLAC 30 MG/ML VIAL IVP STA (17:16)
[2025-01-06] MEDS: HYDROmorphone 1 MG/ML CARPUJECT IM STA (17:19)
--- NOTE | 2025-01-06 18:12 | CT Report ---
PROCEDURE: CT Abdomen/Pelvis W INDICATIONS: RLQ pain/tenderness CONTRAST: Omni 300 100mL TECHNIQUE: After the administration of intravenous contrast, a CT scan of the abdomen and pelvis was performed. Images were recorded and evaluated at appropriate window settings. Reformats: coronal and sagittal. For radiation dose reduction, the following was used: automated exposure control, adjustment of mA and/or kV according to patient size. COMPARISON: None. FINDINGS: Image quality: Diagnostic. Lower chest: Unremarkable. Liver: Subcentimeter hypoattenuating liver lesions, too small to characterize by CT. Gallbladder: No radiopaque stones or wall thickening. Biliary tree: No intrahepatic or extrahepatic dilation, accounting for age. Spleen: No splenomegaly. Pancreas: No pancreatic ductal dilation. Adrenals: No adrenal nodule. Kidneys and ureters: No hydronephrosis. No renal cystic lesion which requires follow up. No solid mass. Left nephrectomy. Stomach, bowel and peritoneum: Abnormal dilation of the small bowel, with suspected closed-loop obstruction in the deep pelvis. The closed loop demonstrates wall thickening and decreased wall enhancement, with moderate mesenteric edema of the affected bowel. The transition points are in the midline lower abdomen (series 4, image 85). Lymph nodes: No central or retroperitoneal adenopathy. Vessels: No infrarenal aortic aneurysm. Patent portal vein. PELVIS Reproductive organs: Unremarkable. Bladder: No abnormal wall thickening. Pelvic lymph nodes: No pelvic adenopathy by size criteria. Bones: No aggressive osseous abnormality. Other: No significant ventral or inguinal hernia. IMPRESSION: Suspected closed-loop obstruction, with early signs of bowel necrosis in the affected segment. No evidence of perforation Above discussed with Yves Olivo MD at 01/06/2025 6:07 PM PST. Reviewed by: Skyler Monroy MD on 01/06/2025 6:09 PM PST Approved by: Skyler Monroy MD on 01/06/2025 6:09 PM PST Station ID: [email or web address]
--- NOTE | 2025-01-06 18:20 | ED Physician Documentation ---
PD HPI ABD PAIN Stated complaint Stated Complaint: LRQ ABD PX,N/V Chief complaint Chief Complaint: Abd Pain History obtained from History obtained from: Patient and Family Additional information Additional information: Jennifer Lindsay is a 74-year-old female with a history of liposarcoma first operated on in 2020 who presents today with acute abdominal pain. She indicates that the pain started this morning and worsened and despite waiting it out her pain persistently worsened and migrated to the right side. She has some nausea she has not vomited. Keena Coma Scale Assess Eye opening: Spontaneous Verbal response: Oriented Motor response: Obeys Commands Total score: 15 Review of Systems Patient denies fever or cough she denies chest pain or shortness of breath. She does have abdominal pain and nausea. She has not had urinary symptoms she has not had swelling of her extremities or recent injury. Meds/Allgy Home Medications Ambulatory Orders Medication Instructions Recorded Confirmed ascorbic acid (vitamin C) 250 mg 250 mg PO QDAY 01/06/25 tablet (Vitamin C) cholecalciferol (vitamin D3) 50 50 mcg PO QDAY 5 01/06/25 mcg (2,000 unit) capsule albuterol sulfate 90 mcg/actuation 2 puff inhalation Q 4H PRN 01/04/25 01/06/25 aerosol inhaler (Ventolin HFA) shortness of breath or wheezing fluticasone 250 mcg-salmeterol 50 1 inh inhalation BID 01/04/25 01/06/25 mcg/dose blistr powdr for inhalation (Advair Diskus) omega 5-cnd-ikh-fish oil 60 mg-90 1 cap PO QDAY 01/06/25 mg-500 mg capsule Allergies Allergies Allergy/AdvReac Type Severity Reaction Status Date / Time codeine Allergy Severe weird Verified 01/06/25 14:52 PFSH Active Problems All Active Problems (Updated 01/06/25 @ 18:23 by Yves Olivo MD) Closed loop obstruction of intestine (Acute) Acute abdominal pain (Acute) Nausea and vomiting (Acute) Peripheral neuropathy (Acute) Encounter for long-term current use of medication (Acute) Hyperlipidemia (Chronic) Osteopenia (Chronic) Vitamin D deficiency (Acute) Adhesive capsulitis of right shoulder (Acute) Abdominal mass, left upper quadrant (Acute) Hearing loss (Acute) Cataract (Acute) Screening mammogram, encounter for (Acute) 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 (Acute) Skin lesion (Acute) Abdominal hernia (Acute) Malignant melanoma of skin of left lower extremity (Acute) Melanoma (Acute) Liposarcoma (Acute) Multiple nodules of lung (Acute) Bronchiectasis (Acute) Chronic kidney disease, stage 3 unspecified (Acute) GERD (gastroesophageal reflux disease) (Acute) Single kidney (Acute) High risk medications (not anticoagulants) long-term use (Acute) Medical History Medical History Leiomyoma of body of uterus Family history of Crohn's disease Melanoma of left posterior calf Excised July 2022 Surgical History Surgical History History of incisional hernia repair H/O left radical nephrectomy and adrenal gland, 10/11/2020. Liposarcoma of retroperitoneum. 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 Constitutional normal general appearance The patient does appear to be in pain HENMT normocephalic and head/scalp atraumatic Eyes PERRL and EOMs intact bilaterally Respiratory breath sounds equal bilaterally, normal respiratory effort and clear to auscultation bilaterally Cardiovascular normal heart rate noted, regular rhythm noted and no murmur Genitourinary There is specific right lower quadrant abdominal pain which is severe with guarding. There is no specific pain to the right upper quadrant to the left upper quadrant or to the far left side. Palpation in the mid abdomen produces pain throughout the abdomen. Back/Pelvis spine normal to inspection Extremities normal to inspection Neurology allocation analyst II-XII intact Psychiatry mental status grossly normal, oriented x3, thought process normal and coope rative Skin skin color normal Results Vitals Vitals: Vital Signs - 24 hr 01/06/25 14:47 01/06/25 16:50 01/06/25 17:16 Temperature 36.8 C Temperature Source Temporal Artery Scan Pulse Rate 57 L 75 Respiratory Rate 20 18 Blood Pressure 122/67 177/82 H O2 Saturation 95 100 O2 Source Room air Room air If not protocol: Oxygen Flow, liters/minute Pain Intensity 7 7 7 01/06/25 17:19 01/06/25 18:09 01/06/25 18:09 Temperature Temperature Source Pulse Rate Respiratory Rate Blood Pressure O2 Saturation O2 Source If not protocol: Oxygen Flow, liters/minute Pain Intensity 7 6 6 01/06/25 18:19 01/06/25 19:37 Temperature Temperature Source Pulse Rate 60 Respiratory Rate 16 Blood Pressure 144/81 H O2 Saturation 100 O2 Source Nasal cannula If not protocol: Oxygen Flow, liters/minute 2 Pain Intensity 6 7 Oxygen O2 Source Nasal cannula Labs Labs: Laboratory Tests 01/06/25 15:35 WBC 8.5 RBC 4.28 Hgb 11.9 L Hct 38.3 MCV 89.5 MCH 27.8 MCHC 31.1 L RDW 14.9 Plt Count 277 MPV 10.3 Neut # (Auto) 7.6 H Lymph # (Auto) 0.5 L [place] # (Auto) 0.3 Eos # (Auto) 0.0 Baso # (Auto) 0.0 Absolute Nucleated RBC 0.00 Nucleated RBC % 0.0 Sodium 138 Potassium 4.5 Chloride 106 Carbon Dioxide 22 Anion Gap 10.0 BUN 22 H Creatinine 1.1 Estimated GFR (MDRD) 49 L Glucose 112 H Calcium 10.3 Total Bilirubin 0.4 AST 16 ALT 14 Alkaline Phosphatase 127 H Total Protein 7.7 Albumin 4.1 Globulin 3.6 Albumin/Globulin Ratio 1.1 Lipase 11 Rads (name of study) CT ab/pel with: Relevant Findings:: Prelim report reviewed and EMP independent interpretation of test (looks like an angry bowel obstruction) Interpretation: Impression: Suspected closed-loop obstruction, with early signs of bowel necrosis in the affected segment. No evidence of perforation. PD Medical Decision Making ED course Complexity details: reviewed old records, reviewed results, re-evaluated patient, considered differential, d/w patient and d/w family Reviewed Lab Results: We reviewed a complete blood count showing a normal white blood cell count hemoglobin was mildly low at 11.9 heme hematocrit normal at 38.3 these numbers are similar to where the patient's had previously platelets are normal at 277,000 chemistries show normal electrolytes BUN is mildly elevated 22 creatinine normal at 1.1 alkaline phosphatase is elevated at 127 the remainder of the liver functions are normal. These laboratory studies do not contribute to a specific diagnosis. ED course: 74-year-old female presents with acute right lower quadrant abdominal pain when she presented I examined the patient and felt she likely had appendicitis by history and examination. We did CT scan of the abdomen pelvis which demonstrated a closed-loop obstruction with concern for ischemia. I contacted our on-call surgeon Dr. Parks who will come to the emergency department to evaluate the patient. Discharge Plan Discharge Patient Disposition: 66 [facility] DC/Xfer Condition: Serious Clinical Impression: Closed loop obstruction of intestine Prescriptions: No Action ascorbic acid (vitamin C) [Vitamin C] 250 mg tablet 250 mg PO QDAY cholecalciferol (vitamin D3) 50 mcg (2,000 unit) capsule 50 mcg PO QDAY fluticasone propion-salmeterol [Advair Diskus] 250-50 mcg/dose blister with device 1 inh inhalation BID albuterol sulfate [Ventolin HFA] 90 mcg/actuation HFA aerosol inhaler 2 puff inhalation Q4H PRN (Reason: shortness of breath or wheezing) omega 4-vpu-let-fish oil 60-90-500 mg capsule 1 cap PO QDAY Print Language: Cuban
--- NOTE | 2025-01-06 19:20 | CONSULTATION NOTE ---
Referring Provider Name of Referring Provider:: Dr. Olivo Consult Date: 01/06/25 Chief Complaint Chief Complaint Chief Complaint: Abdominal pain History of Present Illness History Obtained From History obtained from: Patient and her History of Present Illness HPI Comment/Other: 74 yo F w/ pmh of bronchiectasis and liposarcoma (requiring multiple past surgeries including L kidney resection and incisional hernia repair) who presented to the ED on 01/06 with significant abdominal pain and nausea since the morning. She states that it has progressively worsened throughout the day and is now more focused in her right lower quadrant. She denies passing any flatus or having bowel movements today. She had CT scan done which demonstrated suspected closed-loop obstruction, with early signs of bowel necrosis in the affected segment but no evidence of perforation. She currently continues to have nausea but denies any chest pain, fevers or chills. She also states her abdominal pain has only improved minimally with the narcotic in the ED. [facility] Active Problems All Active Problems (Updated 01/06/25 @ 18:23 by Yves Olivo MD) Closed loop obstruction of intestine (Acute) Acute abdominal pain (Acute) Nausea and vomiting (Acute) Peripheral neuropathy (Acute) Encounter for long-term current use of medication (Acute) Hyperlipidemia (Chronic) Osteopenia (Chronic) Vitamin D deficiency (Acute) Adhesive capsulitis of right shoulder (Acute) Abdominal mass, left upper quadrant (Acute) Hearing loss (Acute) Cataract (Acute) Screening mammogram, encounter for (Acute) 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 (Acute) Skin lesion (Acute) Abdominal hernia (Acute) Malignant melanoma of skin of left lower extremity (Acute) Melanoma (Acute) Liposarcoma (Acute) Multiple nodules of lung (Acute) Bronchiectasis (Acute) Chronic kidney disease, stage 3 unspecified (Acute) GERD (gastroesophageal reflux disease) (Acute) Single kidney (Acute) High risk medications (not anticoagulants) long-term use (Acute) Medical History Medical History Leiomyoma of body of uterus Family history of Crohn's disease Melanoma of left posterior calf Excised July 2022 Surgical History Surgical History History of incisional hernia repair H/O left radical nephrectomy and adrenal gland, 10/11/2020. Liposarcoma of retroperitoneum. Family History Family History Father Congestive heart failure (CHF) Mother Breast cancer Other Family history of Crohn's disease Social History Social History Smoking Status: Never smoker Do you dip or chew tobacco?: No Do you vape?: No Do you feel safe in your home environment?: Yes History of physical, verbal, emotional, or financial abuse?: No ETOH Use: None Substance Use: denies use Meds/Allgy Home Medications Ambulatory Orders Medication Instructions Recorded Confirmed ascorbic acid (vitamin C) 250 mg 250 mg PO QDAY 01/06/25 tablet (Vitamin C) cholecalciferol (vitamin D3) 50 50 mcg PO QDAY 5 01/06/25 mcg (2,000 unit) capsule albuterol sulfate 90 mcg/actuation 2 puff inhalation Q 4H PRN 01/04/25 01/06/25 aerosol inhaler (Ventolin HFA) shortness of breath or wheezing fluticasone 250 mcg-salmeterol 50 1 inh inhalation BID 01/04/25 01/06/25 mcg/dose blistr powdr for inhalation (Advair Diskus) omega 5-vlo-mqe-fish oil 60 mg-90 1 cap PO QDAY 01/06/25 mg-500 mg capsule Allergies Allergies Allergy/AdvReac Type Severity Reaction Status Date / Time codeine Allergy Severe weird Verified 01/06/25 14:52 Results Lab Results Lab results reviewed: Yes 01/06/25 15:35 01/06/25 15:35 Other Lab Results: Lab Results x24hrs 01/06/25 Range/Units 15:35 WBC 8.5 (4.8-10.8) x10^3/uL RBC 4.28 (4.20-5.40) 10^6/uL Hgb 11.9 L (12.0-16.0) g/dL Hct 38.3 (37.0-47.0) % MCV 89.5 (81.0-99.0) fL MCH 27.8 (27.0-31.0) pg MCHC 31.1 L (32.0-36.0) g/dL RDW 14.9 (12.0-15.0) % Plt Count 277 (130-450) 10^3/uL MPV 10.3 (7.9-10.8) fL Neut # (Auto) 7.6 H (1.5-6.6) 10^3/uL Lymph # (Auto) 0.5 L (1.5-3.5) 10^3/uL [place] # (Auto) 0.3 (0.0-1.0) 10^3/uL Eos # (Auto) 0.0 (0.0-0.7) 10^3/uL Baso # (Auto) 0.0 (0.0-0.1) 10^3/uL Absolute Nucleated RBC 0.00 x10^3/uL Nucleated RBC % 0.0 /100WBC Sodium 138 (135-145) mmol/L Potassium 4.5 (3.5-4.5) mmol/L Chloride 106 (101-111) mmol/L Carbon Dioxide 22 (21-32) mmol/L Anion Gap 10.0 (6-13) BUN 22 H (6-20) mg/dL Creatinine 1.1 (0.6-1.3) mg/dL Estimated GFR (MDRD) 49 L (>89) Glucose 112 H (74-104) mg/dL Calcium 10.3 (8.5-10.3) mg/dL Total Bilirubin 0.4 (0.2-1.0) mg/dL AST 16 (10-42) IU/L ALT 14 (10-60) IU/L Alkaline Phosphatase 127 H (42-121) IU/L Total Protein 7.7 (6.4-8.9) g/dL Albumin 4.1 (3.2-5.5) g/dL Globulin 3.6 (2.1-4.2) g/dL Albumin/Globulin Ratio 1.1 (1.0-2.2) Lipase 11 (11-82) U/L Diagnostic Imaging Results Diagnostic Imaging Results: positive Final report reviewed and Read independently Review of Systems Status of ROS: 10 or more systems reviewed and unremarkable except as noted in history and below Exam Exam Vital Signs: Vital Signs x48h Temp Pulse Resp BP Pulse Ox O2 Flow Rate 01/06/25 18:19 60 16 144/81 H 100 2 01/06/25 16:50 75 18 177/82 H 100 01/06/25 14:47 36.8 C 57 L 20 122/67 95 Constitutional normal general appearance and distress noted (mild) HENMT normocephalic and head/scalp atraumatic Wearing O2 nasal cannula. Eyes conjunctivae normal and no scleral icterus Neck/C-Spine visual inspection normal Respiratory normal respiratory effort Cardiovascular normal heart rate noted and regular rhythm noted Gastrointestinal Well healed midline laparotomy incision noted, she does have some mild distension and significant TTP diffusely. Extremities normal to inspection Neurology GCS 15 Psychiatry thought process normal, cooperative and affect normal Skin skin color normal Conclusion/Plan Problem List (1) Closed loop obstruction of intestine: Plan: 74 yo F w/ pmh of bronchiectasis and liposarcoma (requiring multiple past surgeries including L kidney resection and incisional hernia repair) who presented to the ED on 01/06 with significant abdominal pain and nausea since the morning. CT scan done which demonstrated suspected closed-loop obstruction, with early signs of bowel necrosis in the affected segment but no evidence of perforation. Her WBC is 8.5, Hgb 11.9 and Cr 1.1. - OR emergently for diagnostic laparoscopy, possible exploratory laparotomy, possible bowel resection, possible ostomy - Admit to inpatient postoperatively - NG tube and Hillman placement in OR - Ancef to be given with surgery - Pain and nausea control as needed Lab Results Lab results reviewed: Yes 01/06/25 15:35 01/06/25 15:35 Diagnostic Imaging Results Diagnostic Imaging Results: positive Final report reviewed and Read independently
[2025-01-06] MEDS: ACETAMINOPHEN 325 MG TABLET PO SCH (19:37)
[2025-01-06] MEDS: LACTATED RINGERS 1,000 ML IV SCH ×2 (19:37→22:06)
[2025-01-06] MEDS ORDERED: LIDOCAINE 1%-EPI 1:100000 20 ML MDV ONE (19:48)
[2025-01-06] MEDS ORDERED: BUPIVACAINE 0.25% PF 10 ML VIAL ONE (19:48)
[2025-01-06] MEDS ORDERED: MIDAZOLAM 2 MG/2 ML VIAL ONE (19:52)
[2025-01-06] MEDS ORDERED: fentaNYL 100 MCG/2 ML VIAL ONE ×2 (19:52→22:09)
--- NOTE | 2025-01-06 19:52 | ANESTHESIA PROCEDURE NOTE ---
Pre-Anesthesia VS, & Labs Diagnosis Surgical Diagnosis:: Small bowel obstruction, bowel ischemia Procedure Procedure: Diagnostic laparoscopy, possible ex lap, possible bowel resection, possible ostomy Vitals Vital Signs: Temp Pulse Resp BP Pulse Ox O2 Flow Rate 36.8 C 60 16 144/81 H 100 2 01/06/25 14:47 01/06/25 18:19 01/06/25 18:19 01/06/25 18:19 01/06/25 18:19 01/06/25 18:19 NPO NPO: >8 hours Is Patient ?: No Lab Results Current Lab Results: Laboratory Tests 01/06/25 15:35: WBC 8.5, RBC 4.28, Hgb 11.9 L, Hct 38.3, MCV 89.5, MCH 27.8, M CHC 31.1 L, RDW 14.9, Plt Count 277, MPV 10.3, Neut # (Auto) 7.6 H, Lymph # (Auto) 0.5 L, [place] # (Auto) 0.3, Eos # (Auto) 0.0, Baso # (Auto) 0.0, Absolute Nucleated RBC 0.00, Nucleated RBC % 0.0, Sodium 138, Potassium 4.5, Chloride 106, Carbon Dioxide 22, Anion Gap 10.0, BUN 22 H, Creatinine 1.1, Estimated GFR (MDRD) 49 L, Glucose 112 H, Calcium 10.3, Total Bilirubin 0.4, AST 16, ALT 14, A lkaline Phosphatase 127 H, Total Protein 7.7, Albumin 4.1, Globulin 3.6, Albumin/Globulin Ratio 1.1, Lipase 11 Lab results reviewed: Yes 01/06/25 15:35 01/06/25 15:35 Meds/Allgy Home Medications Ambulatory Orders Medication Instructions Recorded Confirmed ascorbic acid (vitamin C) 250 mg 250 mg PO QDAY 01/06/25 tablet (Vitamin C) cholecalciferol (vitamin D3) 50 50 mcg PO QDAY 5 01/06/25 mcg (2,000 unit) capsule albuterol sulfate 90 mcg/actuation 2 puff inhalation Q 4H PRN 01/04/25 01/06/25 aerosol inhaler (Ventolin HFA) shortness of breath or wheezing fluticasone 250 mcg-salmeterol 50 1 inh inhalation BID 01/04/25 01/06/25 mcg/dose blistr powdr for inhalation (Advair Diskus) omega 2-arf-xve-fish oil 60 mg-90 1 cap PO QDAY 01/06/25 mg-500 mg capsule Allergies Allergies Allergy/AdvReac Type Severity Reaction Status Date / Time codeine Allergy Severe weird Verified 01/06/25 14:52 PFSH Active Problems All Active Problems Closed loop obstruction of intestine (Acute) Acute abdominal pain (Acute) Nausea and vomiting (Acute) Peripheral neuropathy (Acute) Encounter for long-term current use of medication (Acute) Hyperlipidemia (Chronic) Osteopenia (Chronic) Vitamin D deficiency (Acute) Adhesive capsulitis of right shoulder (Acute) Abdominal mass, left upper quadrant (Acute) Hearing loss (Acute) Cataract (Acute) Screening mammogram, encounter for (Acute) 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 (Acute) Skin lesion (Acute) Abdominal hernia (Acute) Malignant melanoma of skin of left lower extremity (Acute) Melanoma (Acute) Liposarcoma (Acute) Multiple nodules of lung (Acute) Bronchiectasis (Acute) Chronic kidney disease, stage 3 unspecified (Acute) GERD (gastroesophageal reflux disease) (Acute) Single kidney (Acute) High risk medications (not anticoagulants) long-term use (Acute) Medical History Medical History Leiomyoma of body of uterus Family history of Crohn's disease Melanoma of left posterior calf Excised July 2022 Surgical History Surgical History History of incisional hernia repair H/O left radical nephrectomy and adrenal gland, 10/11/2020. Liposarcoma of retroperitoneum. Family History Family History Father Congestive heart failure (CHF) Mother Breast cancer Other Family history of Crohn's disease Social History Social History Smoking Status: Never smoker Do you dip or chew tobacco?: No Do you vape?: No Do you feel safe in your home environment?: Yes History of physical, verbal, emotional, or financial abuse?: No ETOH Use: None Substance Use: denies use Results EKG Results EKG Comparison: Reviewed EKG Anesthesia Exam (Expanded) Exam General: Alert and Oriented x3 Dental: WNL Mouth Openin Fingerbreadth Neck Mobility: Normal Mallampati classification: II Thyromental Distance: 4-6 cm Respiratory: Lungs clear Cardiovascular: Regular rate Mental/Cognitive Status: Alert/Oriented X3 Cognitive Status: Within normal limits Exam Exam Vital Signs: Vital Signs x48h Temp Pulse Resp BP Pulse Ox O2 Flow Rate 01/06/25 18:19 60 16 144/81 H 100 2 01/06/25 16:50 75 18 177/82 H 100 01/06/25 14:47 36.8 C 57 L 20 122/67 95 Constitutional normal general appearance Neck/C-Spine cervical full ROM noted Respiratory breath sounds equal bilaterally Cardiovascular normal heart rate noted Plan Problem List (1) Closed loop obstruction of intestine: Plan: 74 yo F w/ pmh of bronchiectasis and liposarcoma (requiring multiple past surgeries including L kidney resection and incisional hernia repair) who presented to the ED on 01/06 with significant abdominal pain and nausea since the morning. CT scan done which demonstrated suspected closed-loop obstruction, with early signs of bowel necrosis in the affected segment but no evidence of perforation. Her WBC is 8.5, Hgb 11.9 and Cr 1.1. - OR emergently for diagnostic laparoscopy, possible exploratory laparotomy, possible bowel resection, possible ostomy - Admit to inpatient postoperatively - NG tube and Hillman placement in OR - Ancef to be given with surgery - Pain and nausea control as needed Plan Anesthesia Type: General and Transverse Abdominis Plane (TAP) Block Regional Block: Per Surgeon's request for Post Op pain control Consent for Procedure(s) Verified and Reviewed: Yes Code Status: Attempt Resuscitation ASA Classification ASA classification: 2-Mild systemic disease Is this case an emergency?: Yes
[2025-01-06] MEDS ORDERED: MORPHINE 2 MG/ML CARPUJECT IVP PRN (19:53)
[2025-01-06] MEDS ORDERED: ATROPINE ABBOJECT 1 MG/10 ML SYRINGE IVP PRN (19:53)
[2025-01-06] MEDS ORDERED: NALOXONE 0.4 MG/ML VIAL IVP PRN (19:53)
[2025-01-06] MEDS ORDERED: METOCLOPRAMIDE 10 MG/2 ML VIAL IVP PRN (19:53)
[2025-01-06] MEDS ORDERED: HYDROmorphone 0.5 MG/0.5 ML SYRINGE IVP PRN (19:53)
[2025-01-06] MEDS ORDERED: ONDANSETRON 4 MG/2 ML VIAL IVP PRN (19:53)
[2025-01-06] MEDS ORDERED: fentaNYL 100 MCG/2 ML VIAL IVP PRN (19:53)
[2025-01-06] MEDS ORDERED: ePHEDrine 50 MG/ML VIAL IVP PRN (19:53)
[2025-01-06 19:59] LABS: OCCULT BLOOD,URINE NEGATIVE (NEGATIVE)
[2025-01-06 20:00] LABS: GLUCOSE, URINE (UA) NEGATIVE (NEGATIVE); KETONES,URINE (UA) >=80 mg/dL (NEGATIVE)
[2025-01-06] MEDS ORDERED: ALBUTEROL NEB 2.5 MG/3 ML INH PRN (20:17)
[2025-01-06] MEDS ORDERED: SCOPOLAMINE PATCH TOP ONE ×2 (20:19→21:44)
--- OUTSIDE RECORDS SUMMARY | 2025-01-06 20:32 | EXTERNAL MEDICAL SUMMARY RPT | Continuity of Care Document ---
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 [employer] 2025-01-04 09:34 Polyneuropathy, unspecified [facility] 2025-01-04 09:34 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 [employer] 2025-01-04 10:48 Polyneuropathy, unspecified [facility] 2025-01-04 10:48 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 [employer] 2025-01-06 13:48 Nausea with vomiting, [facility]specifi ed [facility] 2025-[facility] 14:52 Unspecified abdominal pain [employer] 2025-01-06 14:52 Nausea with vomiting, unspecifi ed [employer] 2025-01-06 19:20 Other intestinal obs truction unspecified as to partial versus complete obstruction [employer] 2025-01-06 19:30 Other intestinal obs truction unspecified as to partial versus complete obstruction [employer] 2025-01-06 19:32 Other intestinal obs truction unspecified as to partial versus complete obstruction [facility] Results/Labs test date facility value unit notes Result panel 1 NUCLEATED RED BLOOD CELLS AUTO 2025-01-06 15:35 [facility] 0.0 /100wbc (missing) BASOPHILS # (AUTO) 2025-01-06 15:35 [facility] 0.0 10 3/ul (missing) EOSINOPHILS # (AUTO) 2025-01-06 15:35 [facility] 0.0 10 3/ul (missing) NRBC ABSOLUTE COUNT (AUTO) 2025-01-06 15:35 [facility] 0.00 x10 3/ul (missing) MONOCYTES # (AUTO) 2025-01-06 15:35 [facility] 0.3 10 3/ul (missing) BILIRUBIN,TOTAL 2025-01-06 15:35 [facility] 0.4 mg/dl As of August 2022 testing method has changed, this may include reference ranges. LYMPHOCYTES # (AUTO) 2025-01-06 15:35 [facility] 0.5 10 3/ul (missing) ALBUMIN/GLOBULIN RATIO 2025-01-06 15:35 [facility] 1.1 (missing) (missing) CREATININE 2025-01-06 15[facility] 1.1 mg/dl As of August 2022 testing method has changed, this may include reference ranges. ANION GAP 2025-01-06 15:35 [facility] 10.0 (missing) (missing) MEAN PLATELET VOLUME 2025-01-06 15:35 [facility] 10.3 fl (missing) CALCIUM 2025-01-06 15:35 [facility] 10.3 mg/dl As of August 2022 testing method has changed, this may include reference ranges. CHLORIDE 2025-01-06 15:35 [facility] 106 mmol/l As of August 2022 testing method has changed, this may include reference ranges. LIPASE 2025-01-06 15:35 [facility] 11 u/l As of August 2022 testing method has changed, this may include reference ranges. HGB - HEMOGLOBIN 2025-01-06 15:35 [facility] 11.9 g/dl (missing) GLUCOSE 2025-01-06 15:35 [facility] 112 mg/dl As of August 2022 testing method has changed, this may include reference ranges. ALKALINE PHOSPHATASE 2025-01-06 15:35 [facility] 127 iu/l As of August 2022 testing method has changed, this may include reference ranges. SODIUM 2025-01-06 15:35 [facility] 138 mmol/l (missing) ALT ALANINE AMINOTRANSFERASE 2025-01-06 15:35 [facility] 14 iu/l As of August 2022 testing method has changed, this may include reference ranges. RED CELL DISTRIBUTION WIDTH 2025-01-06 15:35 [facility] 14.9 % (missing) AST ASPARTATE AMINOTRANSFERASE 2025-01-06 15:35 [facility] 16 iu/l As of August 2022 testing method has changed, this may include reference ranges. BUN - BLOOD UREA NITROGEN 2025-01-06 15:35 [facility] 22 mg/dl As of August 2022 testing method has changed, this may include reference ranges. CARBON DIOXIDE - CO2 2025-01-06 15:35 [facility] 22 mmol/l As of August 2022 testing method has changed, this may include reference ranges. MEAN CORPUSCULAR HEMOGLOBIN 2025-01-06 15:35 [facility] 27.8 pg (missing) PLT - PLATELET COUNT 2025-01-06 15:35 [facility] 277 10 3/ul (missing) GLOBULIN 2025-01-06 15:35 [facility] 3.6 g/dl (missing) MEAN CORPUSCULAR HGB CONC 2025-01-06 15:35 [facility] 31.1 g/dl (missing) HCT - HEMATOCRIT 2025-01-06 15:35 [facility] 38.3 % (missing) ALBUMIN 2025-01-06 15:35 [facility] 4.1 g/dl As of August 2022 testing method has changed, this may include reference ranges. RED BLOOD COUNT 2025-01-06 15:35 [facility] 4.28 10 6/ul (missing) POTASSIUM 2025-01-06 15:35 [facility] 4.5 mmol/l As of August 2022 testing method has changed, this may include reference ranges. GFR - MDRD 2025-01-06 15:35 [facility] 49 (missing) The IDMS-traceable MDRD Study Equation has been validated extensively in and populations between the ages of 18 and 70 with impaired kidney function (eGFR < 60 mL/min/1.73m2) and has shown good performance for patients with all common causes of kidney disease. Although this equation has not been validated for patients older than 70, an MDRD-derived eGFR may still be a useful tool for providers caring for patients older than 70. References: http://www.nkdep. nih.gov/lab-evalu ation/gfr/creatin ine-stand ardization, last updated May 2011. NEUTROPHILS # (AUTO) 2025-01-06 15:35 [facility] 7.6 10 3/ul (missing) TOTAL PROTEIN 2025-01-06 15:35 [facility] 7.7 g/dl As of August 2022 testing method has changed, this may include reference ranges. WHITE BLOOD COUNT 2025-01-06 15:35 [facility] 8.5 x10 3/ul (missing) MEAN CORPUSCULAR VOLUME 2025-01-06 15:35 [facility] 89.5 fl (missing) Result panel 2 KETONES,URINE (UA) 2025-01-06 19:35 [facility] >=80 mg/dl (missing) UROBILINOGEN,URINE 2025-01-06 19:35 [facility] 0.2 (NORMAL) e.u./dl (missing) SPECIFIC GRAVITY,URINE 2025-01-06 19:35 [facility] 1.005 (missing) (missing) PH,URINE 2025-01-06 19:35 [facility] 8.5 ph (missing) CLARITY,URINE 2025-01-06 19:35 [facility] CLEAR (missing) (missing) LEUKOCYTE ESTERASE, URINE 2025-01-06 19:35 [facility] NEGATIVE (missing) (missing) NITRITE,URINE 2025-01-06 19:35 [facility] NEGATIVE (missing) (missing) OCCULT BLOOD,URINE 2025-01-06 19:35 [facility] NEGATIVE (missing) (missing) BILIRUBIN,URINE 2025-01-06 19:35 [facility] NEGATIVE (missing) Bilirubin can be influenced by color interference. Please correlate positive results with clinical presentation GLUCOSE, URINE (UA) 2025-01-06 19:35 [facility] NEGATIVE mg/dl (missing) UR CULTURE IF IND 2025-01-06 19:35 [facility] NOT INDICATED (missing) (missing) URINE MICROSCOPIC INDICATED? 2025-01-06 19:35 [facility] NOT INDICATED (missing) (missing) PROTEIN,URINE 2025-01-06 19:35 [facility] TRACE mg/dl (missing) COLOR,URINE 2025-01-06 19:35 [facility] YELLOW (missing) URINE CLEAN CATCH Social History date description facility
[2025-01-06] MEDS ORDERED: ACETAMINOPHEN 1,000 MG/100 ML 1,000 MG/100 ML BAG IV ONE (20:52)
[2025-01-06] MEDS ORDERED: DEXAMETHASONE 4 MG/ML VIAL ONE (20:52)
[2025-01-06] MEDS ORDERED: ONDANSETRON 4 MG/2 ML VIAL ONE (20:52)
[2025-01-06] MEDS ORDERED: ROCURONIUM 50 MG/5 ML VIAL ONE ×2 (20:52→21:18)
[2025-01-06] MEDS ORDERED: PROPOFOL 200 MG/20 ML VIAL IVP ONE (20:52)
[2025-01-06] MEDS ORDERED: SUGAMMADEX 200 MG/2 ML VIAL IVP ONE (21:45)
--- NOTE | 2025-01-06 22:21 | OPERATIVE REPORT ---
Operative Report General Admit Date: 01/06/25 Procedure Data: Operation Date: 01/06/25 19:45 Proposed Procedures p Diagnostic Laparoscopy(Not Applicable) - Soy Bonilla MD Actual Procedures p Diagnostic laparoscopy, Exploratory Laparotomy with small bowel resection, US guided bilateral TAP block (Not Applicable) - Soy Bonilla MD Anesthesia Type General Case Staff Anesthesia Provider: Dillon Ramos Case Times Procedure Start: 01/06/25 20:16 Procedure End: 01/06/25 22:00 Time out: 01/06/25 20:15 Pre-Op Diagnosis: Small bowel obstruction with bowel ischemia Post Op Diagnosis: Closed loop small bowel obstruction with bowel ischemia Procedure Note Intake, IV Amount (ml): 1,550 Estimated Blood Loss (ml): 50 Output, Urine Amount (ml): 75 Drain/Tube Type: Chavez Cartwright round drain Pathology: Ischemic small bowel segment with associated mesentery, ~33cm Indications: Closed loop small bowel obstruction with signs of bowel ischemia on imaging. Findings: Segment of small bowel rotated on itself and trapped by a scar tissue band causing ischemia of the bowel and the associated mesentery. After small bowel resection and anastomosis there was a widely patent anastomosis. Minimal spillage of succus into the abdominal cavity during anastomosis. Abdomen was irrigated with 3L of warm saline before closure. Complications: None Other Other Information/Narrative: Patient was first correctly identified in the emergency department and wheeled to the operating room via stretcher. They were then made to lay on the operating room table in a supine fashion with both arms abducted to 90 degrees. The patient underwent general anesthesia induction with endotracheal intubation which was well-tolerated. Sequential compression devices were placed to the bilateral lower extremities. A Hillman catheter was placed by the nursing staff and anesthesia placed a nasogastric tube. The abdomen was then prepped and draped in the usual surgical sterile fashion, preoperative antibiotics were administered and a WHO timeout was called to which all in agreement. A 5 mm incision was then made in the left subcostal region at Alba's point using an 11 blade scalpel followed by Optiview placement of a 5 mm trocar under direct visualization. Once confirmed in the intra-abdominal cavity the abdomen was then insufflated to 15 mmHg which was well-tolerated. Upon inspection there was noted to be adhesions from the liver to the anterior abdominal wall as well as from the omentum to the anterior abdominal wall in the upper abdomen. Looking in the lower mid abdomen there was dilated small bowel with a clearly ischemic segment piece of small bowel. Due to the ischemic segment the decision was made to proceed with open small bowel resection. Keeping the abdomen insufflated a midline laparotomy incision was made through the patient's previous surgical scar using a 10 blade scalpel. This was then carried down to the level of the fascia using Bovie electrocautery where multiple Prolene sutures were identified and removed. Once the abdomen was then entered under direct visualization a finger was then placed to protect the bowel as the fascial incision was open to the full length of the skin incision. The large Kendrick wound protector was then placed and the camera and 5 mm trocar were removed. There was noted to be murky ascitic fluid throughout the abdomen which was then suctioned using the pool sucker. The bowel was then eviscerated while taking down adhesions to completely mobilize the bowel until the ischemic segment could be completely evaluated. We then continued to mobilize the remaining bowel around it using Metzenbaum scissors to take down adhesions so that we could perform our small bowel anastomosis after resection. A small window was then made in the proximal segment of healthy bowel using Bovie electrocautery and a hemostat was passed through this window and used to pass the TEJ 75 mm stapler through. The bowel was then stapled here and then this was repeated at the distal segment of healthy bowel. LigaSure impact was then used to take down the mesentery to completely remove the ischemic segment of small bowel from the abdomen. The segment of ischemic bowel was then passed off and measured and found to be 33cm in length. The antimesenteric corner of both stapled ends of bowel was then grasped with a [place] clamp and then cut off using Metzenbaum scissors. A hemostat was then used to probed to confirm passage into the bowel lumen. During this process a small amount of succus was spilled into the abdomen. Another TEJ 75 mm stapler was then passed through both sides of the bowel and used to create a [id number] small bowel a nastomosis. We then used another TEJ 75 mm stapler to come across the open end of the common channel to close it. 3-0 silk suture was then used to suture the bowel just past the crotch of the staple line to prevent tension at this point. Another 3-0 silk suture was then used to combine both ends of the bowel near the stapled edge. The mesenteric window was then closed using 3-0 silk suture in a simple running fashion. The stapled end of the small bowel common channel was then imbricated using 3-0 silk suture in a Lembert fashion. The bowel was then returned to the abdomen and copious irrigation was then performed with approximately 3 L of warm normal saline. The final round of suctioned fluid was completely clear without signs of succus or bleeding. Small incision was then made in the left lower quadrant and a 19 Indian round AIME drain was then passed through into the abdomen and left in the lower abdomen and pelvis. This was then secured in place at the skin using a 3-0 nylon suture. The Kendrick wound protector was then removed and the fascia was then closed using #1 PDS suture running from the inferior and superior poles to meet in the middle of the wound. These were then tied together followed by reapproximation of the deep dermis using 3-0 Vicryl sutures in a simple interrupted fashion. The skin was then closed using skin stapler. The single 5 mm laparoscopy port was then closed using 4-0 Monocryl suture in a simple interrupted fashion. I then performed a bilateral ultrasound-guided tap block using 0.2% ropivacaine with 20 cc on each side. A Mepilex was then placed in the midline. A Biopatch and Tegaderm was then placed the AIME drain and Dermabond was used to cover the laparoscopy site. At the end of the procedure all sponge needle and instrument counts were confirmed correct and the patient was awoken from general anesthesia and wheeled to the recovery area in good condition.
[2025-01-06] MEDS: SCOPOLAMINE PATCH TOP ONE (22:35)
[2025-01-06] MEDS: ALBUMIN 25% 12.5 GM/50 ML VIAL IV STA (22:35)
[2025-01-06] MEDS ORDERED: HYDROmorphone 0.5 MG/0.5 ML SYRINGE ONE (22:44)
[2025-01-06] MEDS: HYDROmorphone 0.5 MG/0.5 ML SYRINGE IVP PRN (22:45)
--- NOTE | 2025-01-06 22:58 | ANESTHESIA POST OP EVALUATION ---
Anesthesia Post Eval Post Anesthesia Eval Vitals: Last Vital Signs Temp 36.4 C L 01/06/25 22:06 Pulse 83 01/06/25 22:30 Resp 25 H 01/06/25 22:30 BP 144/78 H 01/06/25 22:30 Pulse Ox 93 01/06/25 22:30 O2 Flow Rate 8 01/06/25 22:15 CV Function Including HR & BP: Stable Pain Control: Satisfactory Nausea & Vomiting: Negative Mental Status: Baseline Respiratory Status: Airway Patent Hydration Status: Satisfactory Anesthesia Complications: None
[2025-01-07] MEDS: PIPERACILLIN/TAZOBACTAM 3.375 GM in SODIUM CHLORIDE 0.9% MINIBAG 100 ML IV SCH (00:35)
[2025-01-07] MEDS: SODIUM CHLORIDE FLUSH 0.9% 10 ML SYRINGE IVP SCH (01:10)
[2025-01-07 04:58] LABS: HCT - HEMATOCRIT 35.9 % (37.0-47.0); HGB - HEMOGLOBIN 11.5 g/dL (12.0-16.0); MEAN PLATELET VOLUME 10.2 fL (7.9-10.8); NRBC ABSOLUTE COUNT (AUTO) 0.00 x10^3/uL; NUCLEATED RED BLOOD CELLS AUTO 0.0 /100WBC; PLT - PLATELET COUNT 205 10^3/uL (130-450); RED CELL DISTRIBUTION WIDTH 15.2 % (12.0-15.0)
[2025-01-07 05:17] LABS: ALT ALANINE AMINOTRANSFERASE 11.0 IU/L (10-60); AST ASPARTATE AMINOTRANSFERASE 16.0 IU/L (10-42); BUN - BLOOD UREA NITROGEN 22.0 mg/dL (6-20); CARBON DIOXIDE - CO2 27.0 mmol/L (21-32); CREATININE 1.2 mg/dL (0.6-1.3); GFR - MDRD 44.0 (>89); PHOSPHORUS 4.1 mg/dL (2.5-5.0)
[2025-01-07] MEDS: ACETAMINOPHEN 1,000 MG/100 ML 1,000 MG/100 ML BAG IV SCH (06:01)
[2025-01-07] MEDS ORDERED: PHENOL THROAT SPRAY 177 ML MM PRN (08:02)
--- NOTE | 2025-01-07 08:28 | PROVIDER PROGRESS NOTE ---
Subjective General Admit Date: 01/06/25 Procedure Date: 01/06/25 Post Op Days: 1 Procedure Performed: Dx Lap -> Ex lap, SBR (33cm) w/ [id number]-[id number]-oscw anastomosis, washout Other Other Information/Narrative: Doing well this morning, states that her pain is controlled, she is bothered by the Hillman and the NGT mainly, not yet passing flatus, making adequate UOP, not yet OOB. Wound Assessment Wound/Incisions: positive Dressing dry and intact Drain Type: AIME 19Fr round Drain Output Description: serosanguineous Approximate mls Output: 80 Review of Systems Status of ROS: 10 or more systems reviewed and unremarkable except as noted in history and below Exam Exam Vital Signs: Vital Signs x48h Temp Pulse Resp BP Pulse Ox 01/07/25 07:00 36.7 C 59 L 14 120/58 L 99 01/07/25 03:00 54 L 130/63 96 01/07/25 02:00 62 133/63 H 95 01/07/25 01:00 60 124/62 94 01/07/25 00:30 61 134/63 H 90 L Constitutional normal general appearance and no apparent distress HENMT normocephalic and head/scalp atraumatic NGT in place with thin bilious output in tubing, canister empty Eyes conjunctivae normal and no scleral icterus Neck/C-Spine visual inspection normal Respiratory normal respiratory effort Cardiovascular normal heart rate noted and regular rhythm noted Gastrointestinal Mildly distended abdomen with midline dressing in place; clean, dry and intact. L sided AIME drain with serosanguineous output in the tubing. LUQ lap site covered with dermabond. Extremities normal to inspection Neurology GCS 15 Psychiatry thought process normal, cooperative and affect normal Skin skin color normal Impression/Plan Problem List (1) Closed loop obstruction of intestine: Plan: 74 yo F w/ pmh of bronchiectasis and liposarcoma (requiring multiple past surgeries including L kidney resection and incisional hernia repair) who presented to the ED on 01/06 with significant abdominal pain and nausea since the morning. CT scan done which demonstrated suspected closed-loop obstruction, with early signs of bowel necrosis in the affected segment but no evidence of perforation. 01/06: Emergently to the OR for diagnostic laparoscopy which identified and ischemic segment of bowel so was converted to open small bowel resection (33cm) and oxxk-if-zkha anastomosis and washout. Doing well this AM, pain well controlled, NPO w/ NGT in place, not yet OOB or having bowel function. - Continue NPO w/ IVF - Maintain NGT and AIME drain - Continue abx due to small amount of succus spillage, 4 days total - D/c Hillman today - Replete to K>4, P>3 and Mg>2 - Pain and nausea control as needed - Encourage OOB/ambulation, PT ordered
[2025-01-07] MEDS: MAGNESIUM SULFATE 2 GRAM 2 GM/50 ML BAG IV ONE (08:36)
[2025-01-07] MEDS: BENZOCAINE SPRAY MM PRN (08:38)
--- NOTE | 2025-01-07 10:05 | PHARMACY PROGRESS NOTE ---
Best Possible Medication History Admit Date and Time: 01/06/25 190 Home Medications Medication Instructions Recorded Confirmed Type ascorbic acid (vitamin C) 250 mg 250 mg PO QDAY 01/06/25 History tablet (Vitamin C) cholecalciferol (vitamin D3) 50 50 mcg PO QDAY 5 01/06/25 History mcg (2,000 unit) capsule albuterol sulfate 90 mcg/actuation 2 puff inhalation Q 4H PRN 01/04/25 01/06/25 History aerosol inhaler (Ventolin HFA) shortness of breath or wheezing fluticasone 250 mcg-salmeterol 50 1 inh inhalation BID 01/04/25 01/06/25 History mcg/dose blistr powdr for inhalation (Advair Diskus) omega 5-hcb-shc-fish oil 60 mg-90 1 cap PO QDAY 01/06/25 History mg-500 mg capsule Processed by: Nursing Medications reviewed in ED?: Yes Medication History completed: Yes [facility] Statement: As the person ultimately responsible for medication therapy, providers are able to order a medication from an existing home medication list in [facility] via the "Reconcile Routine" prior to Confirmation of that medication by technology support analyst. Such practice is discouraged except when the physician, in their clinical judgment, deems that a medical need exists for a medication without regard to previous use.
[2025-01-07] MEDS: HEPARIN 5,000 UNIT/ML VIAL SUBQ SCH (11:52)
[2025-01-07] MEDS: BUDESONIDE 0.5 MG/2 ML NEB INH SCH (15:07)
[2025-01-07] MEDS: FORMOTEROL FUMARATE NEB 20 MCG/2 ML INH SCH (15:07)
[2025-01-07] MEDS: HYDROmorphone 1 MG/ML CARPUJECT IVP PRN (19:55)
[2025-01-08 11:31] LABS: HCT - HEMATOCRIT 33.7 % (37.0-47.0); HGB - HEMOGLOBIN 10.8 g/dL (12.0-16.0); MEAN PLATELET VOLUME 10.4 fL (7.9-10.8); NRBC ABSOLUTE COUNT (AUTO) 0.00 x10^3/uL; NUCLEATED RED BLOOD CELLS AUTO 0.0 /100WBC; PLT - PLATELET COUNT 186 10^3/uL (130-450); RED CELL DISTRIBUTION WIDTH 15.3 % (12.0-15.0)
[2025-01-08 11:46] LABS: BUN - BLOOD UREA NITROGEN 22.0 mg/dL (6-20); CARBON DIOXIDE - CO2 28.0 mmol/L (21-32); CREATININE 1.2 mg/dL (0.6-1.3); GFR - MDRD 44.0 (>89); PHOSPHORUS 2.4 mg/dL (2.5-5.0)
--- NOTE | 2025-01-08 15:03 | PROVIDER PROGRESS NOTE ---
Subjective General Admit Date: 01/06/25 Procedure Date: 01/06/25 Post Op Days: 2 Procedure Performed: Dx Lap -> Ex lap, SBR (33cm) w/ nbwt-jz-zhza anastomosis, washout Other Other Information/Narrative: Passing gas - no bowel movement. Wound Assessment Wound/Incisions: positive Dressing dry and intact (Mepilex dressing in place.) Drain Type: AIME 19 Fr round Drain Output Description: serosanguineous Approximate mls Output: Minimal Review of Systems Passing gas - no BM yet. Exam Exam Vital Signs: Vital Signs x48h Temp Pulse Pulse Resp BP Pulse Ox 01/08/25 08:15 68 20 01/08/25 08:10 36.6 C 64 18 152/82 H 96 General: 74-year old female, appears stated age, well developed, well nourished, at bedside HEENT: Normocephalic, atraumatic, extraocular movement intact, mucous membranes pink and moist, sclera anicteric and not injected, tongue midline, I removed the NG tube - small nose bleed upon removal which stopped Neck: Supple without pain on palpation, mass or bruit Cardiac: Regular rate and rhythm without rub, gallop, or murmur Chest: Clear to auscultation bilaterally Abdomen: Soft, incisionally tender, normoactive bowel sounds, I did not palpate for hepatomegaly or splenomegaly, slightly distended Genitourinary: Deferred Rectal: Deferred Extremities: No gross neurovascular problem, no clubbing, cyanosis or edema, watched her walk in the halls with PT Gait: No gross motor deficit Psychiatric: Alert and oriented to person place and time, asks and answers questions appropriately, mood and affect appropriate Impression/Plan Problem List (1) Closed loop obstruction of intestine: Problem List Comment Problem List: POD 1 s/p small bowel resection with [id number] anastamosis FEN) Will start clear liquid diet for dinner - I impressed upon patient that eating is ONLY as tolerated. She should feel no pressure to eat. Decrease IVF to 83/mL per hour. Replete to K>4, P>3 and Mg>2 GI) Good bowel sounds - positive flatus. I removed the NG and will hold off until dinner for clear liquid diet. ID) WBC normalized but will continue Abx. Drain is minimal - serosanguinous. Pain) Controlled with current therapy. Activity) Motivated and working with PT. Ambulating very well. CPT 16184
--- NOTE | 2025-01-08 16:39 | PT Plan of Care ---
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 Liposarcoma of retroperitoneum. BALANCE/FUNCTIONAL RESULTS Sitting Balance: Good Standing Balance: Fair ASSESSMENT Assessment: The pt is a 74 y/o F who arrived to the ED on 01/06/25 due to worsening abdominal pain and pressure, she was hospitalized with a closed loop intestinal obstruction and is now POD2 s/p ex lap converted to open small bowel resection. PMH includes liposarcoma with multiple surgeries including a bronchiectomy, please see chart for complete medical hx. The pt was received resting comfortably supine in bed while visiting with her . She presented today with mildly decreased B UE and LE strength and activity tolerance which limited her overall tolerance during functional mobility. During this assessment, prior to mobility training, the surgeon arrived and removed the pt's NG tube. At this time recommend continued skilled PT intervention while in the acute setting and DC home without further rehab needs once pt medically stable. This plan was discussed with the pt and she was in agreement with this. At the end of the session the pt was sitting up in a chair with call light in reach and all needs met. RN and MD updated on pt's status and DC rec. PATIENT/FAMILY GOALS Patient/Family Goals: To get stronger and be able to drink some water so that I can go back home GOALS Improve supine to sit to:: Modified Independent Improve sit to stand to:: Independent Improve pivot transfer ability to:: Independent Improve sit to supine to:: Modified Independent Improve gait ability to:: Ind Increase distance walked to (in feet):: 250 Other gait goal:: Ind navigating 3 steps without using rails PLAN Frequency: 1-2x/day Duration: Until goals are met DISCHARGE RECOMMENDATIONS Discharge Location: Previous Living Situation Support/Services Needed: No needs Other Discharge Equipment: pt owns all recommended DME Transport Needs at Discharge: Personal vehicle
[2025-01-09] MEDS: ONDANSETRON 4 MG/2 ML VIAL IVP PRN (00:55)
[2025-01-09 04:57] LABS: HCT - HEMATOCRIT 33.7 % (37.0-47.0); HGB - HEMOGLOBIN 10.3 g/dL (12.0-16.0); MEAN PLATELET VOLUME 10.8 fL (7.9-10.8); NRBC ABSOLUTE COUNT (AUTO) 0.00 x10^3/uL; NUCLEATED RED BLOOD CELLS AUTO 0.0 /100WBC; PLT - PLATELET COUNT 186 10^3/uL (130-450); RED CELL DISTRIBUTION WIDTH 15.2 % (12.0-15.0)
[2025-01-09 05:11] LABS: BUN - BLOOD UREA NITROGEN 17.0 mg/dL (6-20); CARBON DIOXIDE - CO2 27.0 mmol/L (21-32); CREATININE 1.1 mg/dL (0.6-1.3); GFR - MDRD 49.0 (>89); PHOSPHORUS 2.6 mg/dL (2.5-5.0)
[2025-01-09] MEDS ORDERED: HYDROmorphone 0.5 MG/0.5 ML SYRINGE IVP PRN (10:55)
[2025-01-09] MEDS ORDERED: oxyCODONE 5 MG TABLET PO PRN (11:42)
[2025-01-09] MEDS: ACETAMINOPHEN 325 MG TABLET PO SCH (12:39)
--- NOTE | 2025-01-09 23:14 | PROVIDER PROGRESS NOTE ---
Subjective General Admit Date: 01/06/25 Procedure Date: 01/06/25 Post Op Days: 3 Procedure Performed: Dx Lap -> Ex lap, SBR (33cm) w/ liqg-hr-[id number] anastomosis, washout Other Other Information/Narrative: Doing well this AM, tolerating clears, having flatus, pain controlled, OOB ambulating. Wound Assessment Wound/Incisions: positive Healing well Drain Type: AIME 19 Fr round Drain Output Description: serosanguineous Approximate mls Output: Minimal Review of Systems Status of ROS: 10 or more systems reviewed and unremarkable except as noted in history and below Exam Exam Vital Signs: Vital Signs x48h Temp Pulse Pulse Resp BP Pulse Ox 01/09/25 19:39 70 16 01/09/25 19:35 130/97 H 01/09/25 18:14 36.6 C 65 16 179/88 H 97 Constitutional normal general appearance and no apparent distress HENMT normocephalic and head/scalp atraumatic NGT in place with thin bilious output in tubing, canister empty Eyes conjunctivae normal and no scleral icterus Neck/C-Spine visual inspection normal Respiratory normal respiratory effort Cardiovascular normal heart rate noted and regular rhythm noted Gastrointestinal Abdomen soft, nondistended, appropriately TTP, midline dressing removed, mai in situ, wound healing appropriately. L sided AIME drain with serosanguineous output in the tubing. LUQ lap site covered with dermabond. Extremities normal to inspection Neurology GCS 15 Psychiatry thought process normal, cooperative and affect normal Skin skin color normal Impression/Plan Problem List (1) Closed loop obstruction of intestine: Plan: 74 yo F w/ pmh of bronchiectasis and liposarcoma (requiring multiple past surgeries including L kidney resection and incisional hernia repair) who presented to the ED on 01/06 with significant abdominal pain and nausea since the morning. CT scan done which demonstrated suspected closed-loop obstruction, with early signs of bowel necrosis in the affected segment but no evidence of perforation. 01/06: Emergently to the OR for diagnostic laparoscopy which identified and ischemic segment of bowel so was converted to open small bowel resection (33cm) and mbdl-pb-cjzm anastomosis and washout. Doing well this, tolerating clears, OOB ambulating, having flatus. - Clears AM, Solid diet PM - Maintain AIME drain - Continue abx due to small amount of succus spillage, 4 days total - Replete to K>4, P>3 and Mg>2 - Pain and nausea control as needed - Encourage OOB/ambulation, PT ordered - Dispo planning tomorrow
[2025-01-09] MEDS: SODIUM CHLORIDE FLUSH 0.9% 10 ML SYRINGE IVP PRN (23:47)
[2025-01-09] MEDS: LACTATED RINGERS 1,000 ML IV SCH (23:51)
[2025-01-09] MEDS: ACETAMINOPHEN 1,000 MG/100 ML 1,000 MG/100 ML BAG IV PRN (23:55)
[2025-01-10] MEDS: HYDROmorphone 0.5 MG/0.5 ML SYRINGE IVP PRN (04:26)
[2025-01-10] MEDS ORDERED: oxyCODONE 5 MG TABLET PO PRN (07:24)
--- NOTE | 2025-01-10 07:31 | PROVIDER PROGRESS NOTE ---
Subjective General Admit Date: 01/06/25 Procedure Date: 01/06/25 Post Op Days: 4 Procedure Performed: Dx Lap -> Ex lap, SBR (33cm) w/ dasy-nl-kddg anastomosis, washout Other Other Information/Narrative: Doing well this morning, had some nausea and vomiting after dinner last night, she states ever since her April surgery she has had issues with PO intake. She currently reports feeling overall improved with no nausea, she conitnues to pass flatus and had a large bowel movement this morning. Wound Assessment Wound/Incisions: positive Healing well Drain Type: AIME 19 Fr round Drain Output Description: serosanguineous Approximate mls Output: 100 Review of Systems Status of ROS: 10 or more systems reviewed and unremarkable except as noted in history and below Exam Exam Vital Signs: Vital Signs x48h Temp Pulse Pulse Resp BP Pulse Ox 01/10/25 07:21 74 16 01/10/25 02:54 36.4 C L 77 18 163/96 H 99 01/10/25 00:05 36.7 C 104 H 20 173/98 H 96 Constitutional normal general appearance and no apparent distress HENMT normocephalic and head/scalp atraumatic Eyes conjunctivae normal and no scleral icterus Neck/C-Spine visual inspection normal Respiratory normal respiratory effort Cardiovascular normal heart rate noted and regular rhythm noted Gastrointestinal Abdomen soft, nondistended, appropriately TTP, mai in situ, wound healing appropriately. L sided AIME drain with serosanguineous output in the tubing. LUQ lap site covered with dermabond. Extremities normal to inspection Neurology GCS 15 Psychiatry thought process normal, cooperative and affect normal Skin skin color normal Impression/Plan Problem List (1) Closed loop obstruction of intestine: Plan: 74 yo F w/ pmh of bronchiectasis and liposarcoma (requiring multiple past surgeries including L kidney resection and incisional hernia repair) who presented to the ED on 01/06 with significant abdominal pain and nausea since the morning. CT scan done which demonstrated suspected closed-loop obstruction, with early signs of bowel necrosis in the affected segment but no evidence of per foration. 01/06: Emergently to the OR for diagnostic laparoscopy which identified and ischemic segment of bowel so was converted to open small bowel resection (33cm) and jfci-ux-lmbb anastomosis and washout. Doing well this AM, nausea/emesis after dinner last night, since then continues to pass flatus and had a large BM, wants to try food again today. - Low Na diet with Ensure, per patient preference - Transitioned back to PO meds - Maintain AIME drain - Abx to stop today - Replete to K>4, P>3 and Mg>2 - Pain and nausea control as needed - Encourage OOB/ambulation, PT ordered - Dispo planning today vs. tomorrow depending on how she tolerates PO intake
[2025-01-10] MEDS: ACETAMINOPHEN 160 MG/5 ML SUSP UDC PO STA (08:02)
--- NOTE | 2025-01-10 13:44 | Discharge Summary ---
Discharge Summary Admit Date: 01/06/25 Discharge Date: 01/10/25 Discharging Provider: Soy Bonilla Code Status: Attempt Resuscitation Discharge Facility Name: [facility] DIAGNOSES Admission Diagnoses: Closed loop small bowel obstruction with bowel ischemia Discharge Diagnoses with Status of Each Condition: Closed loop small bowel obstruction with bowel ischemia - Resolved HPI History of Present Illness: 74 yo F w/ pmh of bronchiectasis and liposarcoma (requiring multiple past surgeries including L kidney resection and incisional hernia repair) who presented to the ED on 01/06 with significant abdominal pain and nausea since the morning of admission. She stated that it had progressively worsened throughout the day and became more focused in her right lower quadrant. She denied passing any flatus or having bowel movements. She had CT scan done which demonstrated suspected closed-loop obstruction, with early signs of bowel necrosis in the affected segment but no evidence of perforation. She also stated that her abdominal pain had only improved minimally with the narcotics in the ED. CONSULTS | PROCEDURES Consultations: PT, Nutrition Procedures: 01/06: Diagnostic laparoscopy converted to open small bowel resection with vlqa-hu-eagv anastomosis, lysis of adhesions and peritoneal washout HOSPITAL COURSE Hospital Course: After surgery she recovered well on the floor with an NGT in place getting IV fluids and pain meds. She subsequently started passing gas and was with low NGT output so the NGT was removed and she was started on clears. She began working with PT and was OOB ad oswaldo with good pain control. She eventually was advanced to a solid diet and then had a large bowel movement along with passing gas. She was then normalized and subsequently discharged on oral pain meds and anti- nausea meds, per the patients preference, on 01/10. ALLERGIES Allergies Allergy/AdvReac Type Severity Reaction Status Date / Time codeine Allergy Severe weird Verified 01/06/25 14:52 MEDICATIONS Ambulatory Orders Medication Instructions Recorded Confirmed ascorbic acid (vitamin C) 250 mg 250 mg PO QDAY 01/06/25 tablet (Vitamin C) cholecalciferol (vitamin D3) 50 50 mcg PO QDAY 5 01/06/25 mcg (2,000 unit) capsule albuterol sulfate 90 mcg/actuation 2 puff inhalation Q 4H PRN 01/04/25 01/06/25 aerosol inhaler (Ventolin HFA) shortness of breath or wheezing fluticasone 250 mcg-salmeterol 50 1 inh inhalation BID 01/04/25 01/06/25 mcg/dose blistr powdr for inhalation (Advair Diskus) omega 1-rax-sqo-fish oil 60 mg-90 1 cap PO QDAY 01/06/25 mg-500 mg capsule ondansetron 4 mg disintegrating 4 mg PO Q8H PRN nausea and 01/10/25 tablet vomiting #20 tabs tramadol 50 mg tablet 50 mg PO Q8H PRN pain #14 ta bs 01/10/25 PHYSICAL EXAM AT DISCHARGE Vital Signs: Vital Signs x48h Temp Pulse Pulse Resp BP Pulse Ox 01/10/25 13:15 65 167/93 H 95 01/10/25 10:40 36.4 C L 68 166/86 H 95 01/10/25 07:54 36.4 C L 62 19 161/79 H 96 01/10/25 07:21 74 16 General Appearance: positive No acute distress Eyes Bilateral: positive Normal inspection ENT: positive ENT inspection nml Neck: positive Nml inspection Respiratory: positive No respiratory distress Cardiovascular: positive Regular rate & rhythm Abdomen: positive No distention, Tenderness (Appropriately TTP) and Other (Midline mai in situ, healing well, LUQ trocar site with dermabond in place, L AIME removed) Skin: positive Color nml Extremities: positive Non-tender Neurologic/Psychiatric: positive Oriented x3 LABS 01/09/25 04:28 01/09/25 04:28 DIAGNOSTIC IMAGING Diagnostic Imaging Results: Final report reviewed FOLLOW UP Follow Up: Follow up in office with Dr. Bonilla in 2 weeks TIME SPENT Time Spent in Discharge (Minutes): 40 Discharge Plan Discharge Patient Disposition: Home, Self Care Condition: Good Prescriptions: New tramadol 50 mg tablet 50 mg PO Q8H PRN (Reason: pain) Qty: 14 0RF ondansetron 4 mg tablet,disintegrating 4 mg PO Q8H PRN (Reason: nausea and vomiting) Qty: 20 0RF Continued ascorbic acid (vitamin C) [Vitamin C] 250 mg tablet 250 mg PO QDAY cholecalciferol (vitamin D3) 50 mcg (2,000 unit) capsule 50 mcg PO QDAY fluticasone propion-salmeterol [Advair Diskus] 250-50 mcg/dose blister with device 1 inh inhalation BID albuterol sulfate [Ventolin HFA] 90 mcg/actuation HFA aerosol inhaler 2 puff inhalation Q4H PRN (Reason: shortness of breath or wheezing) omega 9-sev-wbl-fish oil 60-90-500 mg capsule 1 cap PO QDAY Activity Restrictions: Activity as Tolerated Activity Restrictions/Additional Instructions: DIET * You may resume your normal diet if there is no nausea or vomiting. * If nausea or vomiting occurs, don't eat or drink anything for one hour. Then start drinking small amounts of clear liquids. Later, add crackers, gradually building up to your usual diet. ACTIVITY INSTRUCTIONS * No lifting more than 15 pounds for 6 weeks * May shower normally, keep AIME site dry for 48 hours. * No submersion of incision(s) for 2 weeks DRESSING CARE * May shower, let soap and water run over the incisions, no rubbing or scrubbing, pat dry * Leave the Dermabond (purple glue) in place - they will fall off on their own in 1-2 weeks * Keep mai in place, will be removed at your post op appointment. * Using supportive garments to reduce surgical site motion will reduce pain DISCHARGE INSTRUCTIONS * Please call the General Surgery Clinic / Dr. Bonilla's office ([phone]) for any questions or signs of bleeding or infection (redness or drainage at incision, worsening pain/nausea/vomiting/fever). * Go to the Emergency Room after hours for severe symptoms. MEDICATIONS * Use Tylenol (acetaminophen) on a scheduled basis for the first 3-5 days, then on as "as needed" basis as pain decreases. * Use Tramadol (a narcotic) for breakthrough pain. Do not drive while taking Tramadol. * Tramadol will cause constipation - drink plenty of water, and use [id number] Miralax twice a day as needed. ANESTHESIA PRECAUTIONS * Anesthesia and medications given during surgery remain in your body up to 24 hours. This may slow reaction time and/or decrease coordination. FOR THE NEXT 24 HOURS: * Have a responsible person with you * Avoid any activity that requires you to be alert and coordinated * DO NOT DRIVE a motor vehicle for 24 hours or as long as you are taking opioid pain medication * Do not drink alcoholic beverages * Do not smoke unattended Patient Date Escort Date RN Date Diet: Regular Print Language: Belgian Patient Instructions: Surg Dc Stand Alone Forms: PCP List Follow-up Care: Soy Bonilla MD [Provider Admit Priv/Credential, Surgery, General] - 2 Weeks Referral Note: Post op for laparotomy with bowel resection Debora Jo ARNP [Primary Care Provider, Family Practice]
[2025-01-10 16:50] VITALS: BP 151/80; TEMP 97.9; O2SAT 97
== END 2025-01-10 16:30 | disposition home or self-care (01) | DRG 329 ==
LOC: ED 14:18 → MS3 19:03
PROVIDERS: ADMIT Student in an Organized Health Care Education/Training Program; ATTEND Student in an Organized Health Care Education/Training Program
DX: E78.5 Hyperlipidemia, unspecified; K56.699 Other intestinal obstruction unspecified as to partial versus complete obstruction; Z79.51 Long term (current) use of inhaled steroids; E55.9 Vitamin D deficiency, unspecified; Z90.5 Acquired absence of kidney; Z88.5 Allergy status to narcotic agent; Z53.31 Laparoscopic surgical procedure converted to open procedure; Z79.899 Other long term (current) drug therapy; N18.30 Chronic kidney disease, stage 3 unspecified; K55.019 Acute (reversible) ischemia of small intestine, extent unspecified; Z85.831 Personal history of malignant neoplasm of soft tissue; J47.9 Bronchiectasis, uncomplicated; K56.50 Intestinal adhesions [bands], unspecified as to partial versus complete obstruction